=== PATIENT | male | born 1965 | race Two or more races ===

== ENCOUNTER 2020-01-02 20:14 | Inpatient (IN) | payer MEDICAID, OTHER ==
[~2020-01-02] VITALS: Ht 165.1 cm; Wt 94.6 kg
[2020-01-02 00:30] VITALS: BP 260/68
--- NOTE | 2020-01-02 20:14 | NUR ---
BIBEMS FROM [facility] C/O FEVER, CHILLS, ALTERED. NOTED PT WITH BLOOD AT THE CORNER OF HIS MOUTH DURING TEMP CHECK. PT TO BED R7, AWAKE/ALERT, -SOB, NOT IN ACUTE DISTRESS, SZR PRECAUTION STARTED. VSS. +TACHY/+FEVER, PENDING ER PROVIDER MEEK
[2020-01-02] MEDS ORDERED: VANCOMYCIN 1 GM in IV D5W 250 ML IV ONE (20:30)
[2020-01-02] MEDS ORDERED: ACETAMINOPHEN 650 MG/SUPP.RECT RC ONE ×2 (20:30→20:43)
[2020-01-02] MEDS ORDERED: PIPERACILLIN /TAZOBACTAM 3.375 G in IV D5W 50 ML IV ONE (20:30)
[2020-01-02 20:42] LABS: BASOPHILS % (AUTO) 0.8 % (0.0-2.0); EOSINOPHILS % (AUTO) 1.3 % (0.0-6.0); HEMATOCRIT 36 % (39-51); HEMOGLOBIN 11.9 g/dL (13.5-17.5); LYMPHOCYTES # (AUTO) 0.8 /CMM (0.8-4.8); LYMPHOCYTES % (AUTO) 15.6 % (20.0-44.0); MEAN CORPUSCULAR HGB CONC 33 g/dl (31.0-36.0); MEAN CORPUSCULAR VOLUME 91 fL (80-96); MONOCYTES # (AUTO) 0.3 /CMM (0.1-1.30); MONOCYTES % (AUTO) 5.6 % (2.0-12.0); NEUTROPHILS # (AUTO) 3.9 /CMM (1.8-8.9); NEUTROPHILS % (AUTO) 76.7 % (43.0-81.0); PLATELET COUNT (AUTO) 152 /CMM (150-450); RED BLOOD CELL COUNT(AUTO) 3.99 MIL/uL (4.5-6.0); WHITE BLOOD COUNT (AUTO) 5.1 K/uL (4.3-11.0)
[2020-01-02] MEDS ORDERED: PIPERACILLIN /TAZOBACTAM 3.375 G VIAL IV ONE (20:49)
[2020-01-02 21:02] LABS: ALBUMIN 3.2 g/dL (3.4-5.0); BILIRUBIN,DIRECT 0.2 mg/dL (0.0-0.2); BILIRUBIN,TOTAL 0.5 mg/dL (0.2-1.0); CALCIUM, SERUM 8.8 mg/dL (8.5-10.1); POTASSIUM 4.6 mmol/L (3.5-5.1); TOTAL PROTEIN, SERUM 8.2 g/dL (6.4-8.2)
[2020-01-02 21:04] LABS: CREATININE 7.9 mg/dL (0.6-1.3)
[2020-01-02] MEDS ORDERED: VANCOMYCIN 1 GM VIAL ONE (21:49)
--- NOTE | 2020-01-02 21:51 | NUR ---
CALLED [facility]. DIRECTOR CENTER WAS PAGED.
--- NOTE | 2020-01-02 22:37 | NUR ---
[id number] LAURENT (DTR) [phone] OUMOU ()
--- NOTE | 2020-01-02 22:58 | NUR ---
TELE 203
[2020-01-02] MEDS ORDERED: ACETAMINOPHEN 650 MG/SUPP.RECT RC PRN (23:00)
--- NOTE | 2020-01-02 23:06 | NUR ---
REPORT GIVEN TO GRIS HOBSON FOR JAZMYNE PT WILL BE TRANSPORTED TO 2ND FLOOR
[2020-01-02] MEDS ORDERED: ALBUTEROL FS 2.5 MG/3 ML VIAL.NEB NEB PRN (23:30)
[2020-01-03] VITALS (8 sets, daily range): BP systolic 100–260; BP diastolic 31–69
[2020-01-03] MEDS ORDERED: PIPERACILLIN /TAZOBACTAM 3.375 G in IV D5W 50 ML IV SCH ×2
--- NOTE | 2020-01-03 | NUR ---
PATIENT BLOOD PRESSURE 280/68 HR 115 PATIENT RESTLEE AND NOTED JERKING MOVEMENTS ON THE MONITOR SHOWED ARTIFACT SKIN WARM AND DRY PUPIL UNEQUAL LEFT SLOW TO RESPONSE TO LIGHT RAPID RESPONSE CALLED AND WITHEN 3 MINUTES MD OCASIO AND THE RAPID RESPONSE NURSE AT THE BEDSIDE ORERED TO GOVE IV PUSH METROPOLOL 5 MG SLOWLY NOW AND MONITOR
[2020-01-03] MEDS ORDERED: CARV6.25 PO (00:03)
[2020-01-03] MEDS ORDERED: NIFE-35 PO (00:03)
[2020-01-03] MEDS ORDERED: GABA600T12 PO (00:03)
[2020-01-03] MEDS ORDERED: LISI-603 PO (00:03)
[2020-01-03] MEDS ORDERED: ATOR40TA PO (00:03)
[2020-01-03] MEDS ORDERED: SEVE800T8 PO (00:03)
--- NOTE | 2020-01-03 00:04 | NUR ---
BED NOT READY
--- NOTE | 2020-01-03 00:49 | NUR ---
PT TRANSPORTED TO 2ND FLOOR
--- NOTE | 2020-01-03 01:19 | NUR ---
JONATHAN LANDRY RN Elevated temp 101.8 patient with chills. ROXY Mandel at bedside ordered to given PRN Tylenol LA now.
[2020-01-03] MEDS ORDERED: METOPROLOL TARTRATE INJ 5 MG/5 ML AMPUL ONE (01:27)
[2020-01-03] MEDS ORDERED: METOPROLOL TARTRATE INJ 5 MG/5 ML AMPUL IVP STA (01:32)
[2020-01-03] MEDS ORDERED: ZOSYN IVPB 3.375 G in IV D5W 50ml IV ONE (03:00)
--- NOTE | 2020-01-03 05:08 | NUR ---
PATIENT ALERT AND TALKING HAD TO REORIENTATE HIM TO PLACE AND TIME AN EXPLAINED WHAT HAPPEN. HE FOLLOWS COMMANDS SMILES MOVING ALL EXTREMITIES. STATES HE HAS NO PAIN NO HEADACHE TEMP 99.8 ORALLY BLOOD PRESSURE THIS AM 126/31 IMPROVEMENT SEEN BED ALARM ON FOR HIS SAFETY AND SR UP NEAR THE NURSING STATION.
[2020-01-03] MEDS ORDERED: VANCOMYCIN 500 MG in IV D5W 100 ML IV PRN (07:00)
[2020-01-03 07:09] LABS: BASOPHILS % (AUTO) 0.5 % (0.0-2.0); HEMATOCRIT 35 % (39-51); HEMOGLOBIN 11.6 g/dL (13.5-17.5); LYMPHOCYTES # (AUTO) 0.6 /CMM (0.8-4.8); LYMPHOCYTES % (AUTO) 9.7 % (20.0-44.0); MEAN CORPUSCULAR HGB CONC 33 g/dl (31.0-36.0); MEAN CORPUSCULAR VOLUME 91 fL (80-96); MONOCYTES # (AUTO) 0.5 /CMM (0.1-1.30); MONOCYTES % (AUTO) 8.5 % (2.0-12.0); NEUTROPHILS # (AUTO) 4.6 /CMM (1.8-8.9); NEUTROPHILS % (AUTO) 81.3 % (43.0-81.0); PLATELET COUNT (AUTO) 136 /CMM (150-450); RED BLOOD CELL COUNT(AUTO) 3.82 MIL/uL (4.5-6.0); WHITE BLOOD COUNT (AUTO) 5.7 K/uL (4.3-11.0)
[2020-01-03 07:44] LABS: BILIRUBIN,TOTAL 0.5 mg/dL (0.2-1.0); CALCIUM, SERUM 8.6 mg/dL (8.5-10.1); POTASSIUM 5.3 mmol/L (3.5-5.1); TOTAL PROTEIN, SERUM 7.7 g/dL (6.4-8.2)
[2020-01-03 07:46] LABS: CREATININE 10.4 mg/dL (0.6-1.3)
--- NOTE | 2020-01-03 07:57 | NUR ---
RN OPENING NOTE Patient is resting in bed, A/O x3, showing no signs of acute distress or SOB, stable on 2L NC. Tele monitor ST 117. IV line in the RAC#18g is clean and intact flushing well. KRISTY HD cath noted. Bed is in lowest position, side rails x2 in upright position, call light is within reach, fall safety and aspiration precautions enforced. Isolation precautions d/t positive covid. Will continue with plan of care.
[2020-01-03] MEDS: SEVELAMER CARBONATE 800 MG TABLET PO SCH ×3 (08:08→17:09)
[2020-01-03] MEDS: ACETAMINOPHEN 325 MG TABLET PO PRN (08:08)
[2020-01-03] MEDS: PIPERACILLIN /TAZOBACTAM 2.25 G in IV D5W 50 ML IV SCH ×3 (08:08→17:10)
[2020-01-03] MEDS: DEXAMETHASONE SOD PHOSPHATE 10 MG/ML VIAL IV SCH (08:08)
[2020-01-03] MEDS: LISINOPRIL (20MG) 20 MG TABLET PO SCH (08:46)
[2020-01-03] MEDS ORDERED: CARVEDILOL 6.25 MG TABLET PO SCH (09:00)
[2020-01-03] MEDS ORDERED: NIFEdipine XL (30MG) 30 MG TAB PO SCH (09:00)
--- NOTE | 2020-01-03 09:00 | NUR ---
RN NOTE Temp of 99.6F, patient is diaphoretic complaining that he feels very hot. Tylenol given and cooling measures implemented. Temp went down to 98.8F, and patient has no complaints at this time. Will continue with plan of care.
--- NOTE | 2020-01-03 10:11 | NUR ---
WOUND CARE CONSULT: REVIEWED CHART, NURSING DOCUMENTATION AND PHOTOS WHICH INDICATE RT HEEL ESCHAR AND BILATERAL ANKLE REDNESS, PRESENT ON ADMISSION. RECOMMEND DPM CONSULT. DR ALEGRIA CONSULTED. RECOMMENDATIONS MADE FOR SKIN PROTECTION. DISCUSSED WITH NURSING STAFF. MD IN AGREEMENT WITH PLAN OF CARE.
[2020-01-03] MEDS ORDERED: Z GUARD REMEDY 2 OZ OINT TP PRN (10:30)
--- NOTE | 2020-01-03 10:41 | NUR ---
Per Jeri Basilio from ,states she called [facility] and spoke to Pau Barbour RN that Flu vaccine was given on Nov Addendum: 01/09/20 at 0935 by YENNY JEAN-BAPTISTE Above notes is for another patient,please disregard.
[2020-01-03] MEDS: HEPARIN SODIUM, PORCINE 5000 UNITS/1 ML VIAL SQ SCH ×2 (12:05→17:16)
--- NOTE | 2020-01-03 12:44 | NUR ---
RN NOTE Spoke with daughter Anali [phone]. Per daughter, patient lives at home and received flu vaccine last month at dialysis center.
[2020-01-03] MEDS: IPRATROPIUM/ALBUTEROL INHALER IH SCH ×2 (15:24→17:20)
--- NOTE | 2020-01-03 19:15 | NUR ---
RN CLOSING NOTE Patient is resting in bed, A/O x4, showing no signs of acute distress or SOB, stable on 2L NC. Tele monitor SR 70s-80s. IV line in the RAC#18g is clean and intact flushing well. KRISTY HD cath noted. Convalesnet plasma is still not ready per lab. Consent signed by patient, placed in chart. Dr. George completed conv. plasma paperwork. All patient needs met, all due medications given, patient is independent with self care. able to ambulate to bathroom. Bed is in lowest position, side rails x2 in upright position, call light is within reach, fall safety and aspiration precautions enforced. Isolation precautions d/t positive covid. Will endorse to manifold operator for JAZMYNE.
--- NOTE | 2020-01-03 19:38 | NUR ---
RN OPENING NOTES PATIENT RECEIVED RESTING IN BED, A/O X 4. ON 2L OF O2 WITH BREATHING EVEN AND UNLABORED, NO SOB NOTED. NO SIGNS OF ACUTE DISTRESS. NO COMPLAINTS OF PAIN OR DISCOMFORT. TELE MONITOR READING SR. IV LOCATED ON R AC #18 INTACT AND PATENT. KRISTY HD SHUNT NOTED AND IN PLACE. SAFETY PRECAUTIONS IN PLACE WITH BED IN LOWEST POSITION, CALL LIGHT WITHIN REACH, BREAKS ON, SIDE RAILS UP. WILL CONTINUE TO MONITOR THROUGHOUT THE NIGHT.
--- NOTE | 2020-01-03 21:06 | NUR ---
FOLLOWED UP WITH LAB IF CONVALESCENT PLASMA IS READY TO BE PICKED UP. NOT READY YET, WILL BE NOTIFIED WHEN ARRIVED.
[2020-01-03] MEDS: ATORVASTATIN 40 MG TABLET PO SCH (21:12)
[2020-01-03] MEDS: CARVEDILOL 6.25 MG TABLET PO SCH (21:15)
[2020-01-04] VITALS: BP 122/45
--- NOTE | 2020-01-04 | NUR ---
JAZLYN SABILLON PT. HAS TEMPERATURE OF 100.1 TYLENOL 650MG PO GIVEN ORDERED Addendum: 01/05/20 at 0143 by LUCERO VILLAREAL RN WRONG DATE
[2020-01-04] MEDS: PIPERACILLIN /TAZOBACTAM 2.25 G in IV D5W 50 ML IV SCH ×2 (00:24→05:58)
[2020-01-04] MEDS: IPRATROPIUM/ALBUTEROL INHALER IH SCH ×4 (00:33→18:01)
[2020-01-04] MEDS: HEPARIN SODIUM, PORCINE 5000 UNITS/1 ML VIAL SQ SCH ×3 (01:30→17:44)
--- NOTE | 2020-01-04 02:45 | NUR ---
CALLED LAB AND FOLLOWED UP WITH CONVALESCENT PLASMA, NOT READY.
[2020-01-04 04:00] VITALS: BP 101/51
[2020-01-04 06:27] LABS: BASOPHILS % (AUTO) 0.3 % (0.0-2.0); HEMATOCRIT 33 % (39-51); HEMOGLOBIN 10.9 g/dL (13.5-17.5); LYMPHOCYTES # (AUTO) 0.7 /CMM (0.8-4.8); LYMPHOCYTES % (AUTO) 10.2 % (20.0-44.0); MEAN CORPUSCULAR HGB CONC 33 g/dl (31.0-36.0); MEAN CORPUSCULAR VOLUME 92 fL (80-96); MONOCYTES # (AUTO) 0.2 /CMM (0.1-1.30); MONOCYTES % (AUTO) 3.8 % (2.0-12.0); NEUTROPHILS # (AUTO) 5.6 /CMM (1.8-8.9); NEUTROPHILS % (AUTO) 85.7 % (43.0-81.0); PLATELET COUNT (AUTO) 130 /CMM (150-450); RED BLOOD CELL COUNT(AUTO) 3.62 MIL/uL (4.5-6.0); WHITE BLOOD COUNT (AUTO) 6.5 K/uL (4.3-11.0)
--- NOTE | 2020-01-04 06:42 | NUR ---
RN OPENING NOTES PATIENT RESTING IN BED, A/O X 4. ON 2L OF O2 WITH BREATHING EVEN AND UNLABORED, NO SOB NOTED. NO SIGNS OF ACUTE DISTRESS. NO COMPLAINTS OF PAIN OR DISCOMFORT. TELE MONITOR READING SR. IV LOCATED ON R AC #18 INTACT AND PATENT. KRISTY HD SHUNT NOTED AND IN PLACE. SAFETY PRECAUTIONS IN PLACE WITH BED IN LOWEST POSITION, CALL LIGHT WITHIN REACH, BREAKS ON, SIDE RAILS UP. UNABLE TO INFUSE CONVALESCENT THIS SHIFT IT WAS UNAVAILABLE. ALL NEEDS ATTENDED TO. WILL ENDORSE TO ONCOMING SHIFT ABOUT JAZMYNE. Addendum: 01/04/20 at 0644 by CLAUDE FORTE RN RN CLOSING NOTES
[2020-01-04 06:51] LABS: CALCIUM, SERUM 8.4 mg/dL (8.5-10.1); MAGNESIUM 2.4 mg/dL (1.8-2.4); PHOSPHORUS 7.2 mg/dL (2.5-4.9); POTASSIUM 5.9 mmol/L (3.5-5.1)
--- NOTE | 2020-01-04 07:21 | NUR ---
TELE/RN OPENING NOTES RECEIVED PATIENT ON BED. ALERT AND ORIENTED X4. NO COMPLAINED OF PAIN NOTED AT THIS TIME. PATIENT IN NO APPARENT RESPIRATORY DISTRESS NOTED. ON TELE MONITOR READING SINUS RHYTHM 70 BPM. WILL CONTINUE TO MONITOR.
[2020-01-04] MEDS: SEVELAMER CARBONATE 800 MG TABLET PO SCH ×3 (08:23→17:41)
[2020-01-04] MEDS: DEXAMETHASONE SOD PHOSPHATE 10 MG/ML VIAL IV SCH (08:24)
[2020-01-04] MEDS: CARVEDILOL 6.25 MG TABLET PO SCH ×2 (08:24→22:07)
[2020-01-04] MEDS: LISINOPRIL (20MG) 20 MG TABLET PO SCH (08:26)
[2020-01-04] MEDS: NIFEdipine XL (30MG) 30 MG TAB PO SCH (08:27)
[2020-01-04] MEDS: ACETAMINOPHEN 325 MG TABLET PO PRN ×2 (12:43→18:33)
--- NOTE | 2020-01-04 12:44 | NUR ---
TELE/RN NOTES TEMP 100.6 TYLENOL 650MG 1 TAB WAS GIVEN WILL CONTINUE TO MONITOR.
[2020-01-04] MEDS ORDERED: PIPERACILLIN /TAZOBACTAM 2.25 G in IV D5W 50 ML IV SCH (13:00)
--- NOTE | 2020-01-04 19:41 | NUR ---
TELE/RN CLOSING NOTES PATIENT ALERT AND ORIENTED X4. NO COMPLAINED OF PAIN NOTED AT THIS TIME. PATIENT IN NO APPARENT RESPIRATORY DISTRESS NOTED. SEEN AND EXAMINED BY MD WITH ORDER MADE AND CARRIED OUT. ALL DUE MEDICATION WAS IN PLACED. TELE MONITOR READING SR 91 BPM. SAFETY PRECAUTIONS WAS IN PLACED . BED IN LOWEST POSITION AND LOCKED. CALL LIGHT WITH IN REACH. WILL ENDORSED TO COMPANY MARKER FOR JAZMYNE.
[2020-01-04 20:00] VITALS: BP 127/88
--- NOTE | 2020-01-04 20:00 | NUR ---
RN NOTES RECEIVED PT. AWAKE ON BED, A/O X43, AMBULATE WITH ASSIST, IV LINE IS INFILTRATED, NEW IV LINE INSERTED ON THE RIGHT HAND GAUGE 22, DENIES PAIN, NO SOB, CALL LIGHT WITHIN REACH, SIDERAILSUPX2, WILL CONTINUE TO MONITOR
[2020-01-04] MEDS: LEVOFLOXACIN 250 MG /D5W 50 ML 250 MG in PREMIX 1 EA IV SCH (21:15)
[2020-01-04] MEDS: ATORVASTATIN 40 MG TABLET PO SCH (21:16)
[2020-01-04] MEDS: ONDANSETRON HCL/PF 4 MG/2 ML VIAL IVP PRN (21:57)
--- NOTE | 2020-01-04 22:00 | NUR ---
RN NOTES PT IS VOMITING - ZOFRAN 4 MG IV GIVEN ORDERED
[2020-01-05] VITALS (9 sets, daily range): BP systolic 96–135; BP diastolic 46–77
--- NOTE | 2020-01-05 | NUR ---
RN NOTES PT. HAS TEMPERATURE OF 100.1 TYLENOL 650MG PO GIVEN ORDERED
[2020-01-05] MEDS: IPRATROPIUM/ALBUTEROL INHALER IH SCH ×5 (00:08→23:16)
[2020-01-05] MEDS: ACETAMINOPHEN 325 MG TABLET PO PRN ×2 (00:16→10:51)
--- NOTE | 2020-01-05 01:25 | NUR ---
RN NOTES PT. WAS TELLING ME HE'S HAVING DIARRHEA AND WANTS SOME MEDICATION, EXPLAINED TO THE PATIENTS THAT I NEED A SPECIMEN BEFORE GIVING MEDICATION FOR DIARRHEA, BUT PT. REFUSED "PT'S WANTS TO GET HIS MEDICATION NOW".. EXPLAINED THE BENEFITS AND IMPORTANCE OF SENDING SPECIMEN TO THE LAB BUT PT. REFUSED
--- NOTE | 2020-01-05 01:39 | NUR ---
RN NOTES PT. IS COMPLAINING OF HAVING DIARRHEA, SPOKE TO DR. HERNANDEZ AND GOT AN ORDER OF LOPERAMIDE 2MG PO PTN, ORDER NOTED AND CARRIED OUT
[2020-01-05] MEDS ORDERED: LOPERAMIDE HCL (2 MG CAP) 2 MG CAPSULE ONE (02:01)
[2020-01-05] MEDS: LOPERAMIDE HCL (2 MG CAP) 2 MG CAPSULE PO PRN ×2 (02:04→14:50)
[2020-01-05] MEDS: HEPARIN SODIUM, PORCINE 5000 UNITS/1 ML VIAL SQ SCH ×3 (02:07→18:26)
--- NOTE | 2020-01-05 06:34 | NUR ---
RN NOTES AWWAKE, NOT IN DITRESS, DENIES PAIN, NO SOB, CALL LIGHT WITHIN REACH, SIDERAILSUPX2, PT. NEEDS ATTENDED
[2020-01-05 06:39] LABS: CALCIUM, SERUM 8.4 mg/dL (8.5-10.1)
[2020-01-05 07:03] LABS: CREATININE 12.4 mg/dL (0.6-1.3); POTASSIUM 6.8 mmol/L (3.5-5.1)
--- NOTE | 2020-01-05 07:20 | NUR ---
ms rn received patient,awake,alert,oriented x3,no in any form of distress, respirations even and unlabored,no sob noted, lungs are diminish,abdomen soft, positive bowel sounds,denies pain at this time,all needs attended.
[2020-01-05] MEDS: SEVELAMER CARBONATE 800 MG TABLET PO SCH ×3 (08:00→18:00)
--- NOTE | 2020-01-05 08:30 | NUR ---
rn on bed, breakfast served,due meds given,tolerated well.will monitor patient's condition.
[2020-01-05] MEDS: CARVEDILOL 6.25 MG TABLET PO SCH ×2 (09:00→21:33)
[2020-01-05] MEDS: NIFEdipine XL (30MG) 30 MG TAB PO SCH (09:00)
[2020-01-05] MEDS: LISINOPRIL (20MG) 20 MG TABLET PO SCH (09:00)
--- NOTE | 2020-01-05 09:30 | NUR ---
ms rn notified md about labs today, will do hd per renal fnp.
[2020-01-05] MEDS: DEXAMETHASONE SOD PHOSPHATE 10 MG/ML VIAL IV SCH (09:36)
--- NOTE | 2020-01-05 09:40 | NUR ---
ms rn patient refused med for this am, patient refused breakfast.
[2020-01-05] MEDS: ONDANSETRON HCL/PF 4 MG/2 ML VIAL IVP PRN (09:46)
--- NOTE | 2020-01-05 11:30 | NUR ---
ms rn started convalescent plasma transfusion,no adverse reaction noted.
--- NOTE | 2020-01-05 12:00 | NUR ---
ms rn plasma transfusion done,all needs attended.
--- NOTE | 2020-01-05 16:00 | NUR ---
ms dick hd started, will monitor patient.
[2020-01-05 16:17] LABS: CALCIUM, SERUM 8.5 mg/dL (8.5-10.1)
[2020-01-05 16:20] LABS: CREATININE 13.1 mg/dL (0.6-1.3); POTASSIUM 6.6 mmol/L (3.5-5.1)
--- NOTE | 2020-01-05 18:00 | NUR ---
ms rn refused sevelamer because he is not eating.
--- NOTE | 2020-01-05 18:17 | NUR ---
ms kapil hd finished, 2 liters out.
--- NOTE | 2020-01-05 19:10 | NUR ---
MATTRESS AND BOXSPRINGS SUPERVISOR OPENING NOTES: RECEIVED PATIENT IN BED AWAKE, A/O X4. NO S/S OF DISTRESS NOTED. NO COMPLAIN OF PAIN. CALL LIGHT WITHIN REACH. BED ALARM ON. BED IN LOWEST AND LOCKED POSITION. PLACED SCD'S ON BOTH LEGS.
[2020-01-05] MEDS: LEVOFLOXACIN 250 MG /D5W 50 ML 250 MG in PREMIX 1 EA IV SCH (20:35)
[2020-01-05] MEDS: ATORVASTATIN 40 MG TABLET PO SCH (21:33)
--- NOTE | 2020-01-05 23:34 | NUR ---
INFORMED DR HERNANDEZ RE: FOR SLEEPING PILL.
[2020-01-06] VITALS (8 sets, daily range): BP systolic 105–130; BP diastolic 64–77
[2020-01-06] MEDS: ZOLPIDEM TARTRATE 5 MG TABLET PO PRN ×2 (00:36→23:43)
[2020-01-06] MEDS: HEPARIN SODIUM, PORCINE 5000 UNITS/1 ML VIAL SQ SCH ×3 (02:00→17:23)
[2020-01-06] MEDS: IPRATROPIUM/ALBUTEROL INHALER IH SCH ×3 (05:53→17:23)
--- NOTE | 2020-01-06 06:22 | NUR ---
ARMATURE REPAIRER CLOSING NOTES: PATIENT IN BED, AWAKE, A/O X4. NO S/S OF DISTRESS NOTED. NO COMPLAIN OF PAIN. PATIENT STATED HE SLEPT GOOD. CALL LIGHT WITHIN REACH. BED ALARM ON. BED IN LOWEST AND LOCKED POSITION. RIGHT HEEL WOUND PAINTED WITH BETADINE AND COVERED WITH FOAM DRESSING.
[2020-01-06 07:03] LABS: CALCIUM, SERUM 8.5 mg/dL (8.5-10.1); POTASSIUM 5.9 mmol/L (3.5-5.1)
--- NOTE | 2020-01-06 07:37 | NUR ---
METAL FABRICATOR WELDER NOTE PATIENT IN BED RESTING COMFORTABLY. PATIENT IN NO ACUTE DISTRESS. NO SOB NOTED. PATIENT BREATHING IS EVEN AND UNLABORED. PATIENT ON CARDIAC MONITORING READING SINUS RHYTHM HR 78. PATIENT HOB IS ELEVATED. PATIENT SAFETY PRECAUTIONS IN PLACE. PATIENT BED ALARM IS ON. PATIENT BED IS LOCKED AND IN LOWEST POSITION. CALL LIGHT WITHIN REACH. WILL CONTINUE TO MONITOR.
[2020-01-06] MEDS: SEVELAMER CARBONATE 800 MG TABLET PO SCH ×3 (08:13→17:23)
[2020-01-06] MEDS: CARVEDILOL 6.25 MG TABLET PO SCH ×2 (08:14→21:11)
[2020-01-06] MEDS: LISINOPRIL (20MG) 20 MG TABLET PO SCH (08:14)
[2020-01-06] MEDS: NIFEdipine XL (30MG) 30 MG TAB PO SCH (08:15)
[2020-01-06] MEDS: DEXAMETHASONE SOD PHOSPHATE 10 MG/ML VIAL IV SCH (08:16)
--- NOTE | 2020-01-06 12:04 | NUR ---
DIVIDEND CLERK NOTE PATIENT COMPLETED DIALYSIS WITH JERRY HOBSON. PER JERRY 2L TAKEN OUT. PER OSMAR [place] WITH MD ORDER FOR BMP IN 2 HOURS AFTER DIALYSIS.
--- NOTE | 2020-01-06 12:18 | NUR ---
CHECKOUT OPERATOR NOTE PATIENT REQUESTING TYLENOL FOR HEADACHE 4/10 PAIN. TYLENOL PRN TO BE GIVEN ORDERED.
[2020-01-06] MEDS: ACETAMINOPHEN 325 MG TABLET PO PRN ×2 (12:20→21:12)
[2020-01-06] MEDS ORDERED: VANCOMYCIN 1 GM in IV D5W 250 ML IV ONE (14:00)
[2020-01-06 15:35] LABS: CALCIUM, SERUM 8.8 mg/dL (8.5-10.1); POTASSIUM 5.3 mmol/L (3.5-5.1)
[2020-01-06 15:43] LABS: CREATININE 8.4 mg/dL (0.6-1.3)
--- NOTE | 2020-01-06 16:02 | NUR ---
MUSEUM ATTENDANT NOTE INFORMED PRATIK LEON OF BLOOD GLUCOSE RESULT AT 406. PER PRATIK THAT IS DUE TO PATIENT TAKING DEXAMETHASONE. PER PRATIK LEON MD ORDER FOR ACCU CHECK MILD REGULAR INSULIN SLIDING SCALE ACHS.
[2020-01-06] MEDS ORDERED: INSULIN REGULAR, HUMAN 100 UNIT/ML 3 ML VIAL SQ PRN ×2 (16:30→18:30)
[2020-01-06] MEDS ORDERED: DEXTROSE 50%-WATER 50 ML DISP.SYRIN IV PRN ×2 (16:30→18:30)
--- NOTE | 2020-01-06 16:52 | NUR ---
MEDICAL BILLING COORDINATOR NOTE INFORMED PRATIK LEON OF BLOOD SUGAR 492. GAVE 10 UNITS PRN REGULAR INSULIN ACCORDING TO SLIDING SCALE. PER PRATIK GIVE ADDITIONAL 4 UNITS REGULAR INSULIN. Addendum: 01/06/20 at 1653 by NEEL FAIRCHILD RN MEDICAL BILLING COORDINATOR NOTE INFORMED PRATIK LEON OF BLOOD SUGAR 492. GAVE 10 UNITS PRN REGULAR INSULIN ACCORDING TO SLIDING SCALE. PER MD PRATIK ORDER TO GIVE ADDITIONAL 4 UNITS REGULAR INSULIN.
[2020-01-06] MEDS ORDERED: INSULIN REGULAR, HUMAN 100 UNIT/ML 3 ML VIAL SQ ONE (17:00)
[2020-01-06] MEDS ORDERED: BLOOD SUGAR DIAGNOSTIC 1 EACH STRIP IN SCH (17:30)
--- NOTE | 2020-01-06 18:19 | NUR ---
BASIN CLEANER NOTE INFORMED PRATIK LEON OF CURRENT BLOOD SUGAR 461 AND ELEVATED BLOOD GLUCOSE ORDERED RESULTS. PER PRATIK LEON MD ORDER TO CHANGE MILD SLIDING SCALE TO MODERATE SLIDING SCALE AND CONTINUE TO MONITOR.
--- NOTE | 2020-01-06 19:05 | NUR ---
CONTROL INSPECTOR NOTE PATIENT IN BED RESTING COMFORTABLY. PATIENT IN NO ACUTE DISTRESS. NO SOB NOTED. PATIENT BREATHING IS EVEN AND UNLABORED. PATIENT ON CARDIAC MONITORING READING SINUS RHYTHM HR 85. PATIENT HOB IS ELEVATED. PATIENT KEPT CLEAN AND DRY THROUGHOUT SHIFT. WILL ENDORSE TO FOLLOW UP WITH BLOOD SUGAR. PATIENT SAFETY PRECAUTIONS IN PLACE. PATIENT BED ALARM IS ON. PATIENT BED IS LOCKED AND IN LOWEST POSITION. CALL LIGHT WITHIN REACH. WILL ENDORSE CARE TO PM SHIFT FOR JAZMYNE.
--- NOTE | 2020-01-06 19:58 | NUR ---
WARP YARN SORTER NOTES RECEIVED PATIENT IN BED RESTING COMFORTABLY. PATIENT IN NO ACUTE DISTRESS. NO SOB NOTED. PATIENT BREATHING IS EVEN AND UNLABORED. PATIENT ON CARDIAC MONITORING READING SINUS RHYTHM HR 80s. PATIENT HOB IS ELEVATED. SAFETY MEASURES IN PLACE, ASPIRATION PRECAUTION EMPHASIZED. CALL LIGHT WITH IN EASY REACH. ALL NEEDS ANTICIPATED. WILL CONTINUE TO MONITOR ACCORDINGLY.
[2020-01-06] MEDS: ATORVASTATIN 40 MG TABLET PO SCH (21:11)
[2020-01-06] MEDS: BLOOD SUGAR DIAGNOSTIC 1 EACH STRIP VI SCH (21:28)
[2020-01-06] MEDS: *INSULIN REGULAR(HUMULIN R)HUM 100 UNIT/ML VIAL SQ PRN (21:59)
[2020-01-07] MEDS: IPRATROPIUM/ALBUTEROL INHALER IH SCH ×4 (01:19→17:22)
[2020-01-07] MEDS: HEPARIN SODIUM, PORCINE 5000 UNITS/1 ML VIAL SQ SCH ×3 (02:11→17:31)
[2020-01-07] MEDS ORDERED: VANCOMYCIN 500 MG in IV D5W 100 ML IV PRN (06:00)
[2020-01-07] MEDS: BLOOD SUGAR DIAGNOSTIC 1 EACH STRIP VI SCH ×4 (06:46→21:30)
[2020-01-07] MEDS: INSULIN REGULAR, HUMAN 100 UNIT/ML 3 ML VIAL SQ PRN ×3 (06:48→17:31)
--- NOTE | 2020-01-07 07:22 | NUR ---
MUFFLE OPERATOR NOTES ALL NEEDS ATTENDED AND MET. PATIENT IN BED RESTING COMFORTABLY. PATIENT IN NO ACUTE DISTRESS. NO SOB NOTED. PATIENT BREATHING IS EVEN AND UNLABORED. PATIENT ON CARDIAC MONITORING READING SINUS RHYTHM HR 80s. PATIENT HOB IS ELEVATED. SAFETY MEASURES IN PLACE, ASPIRATION PRECAUTION EMPHASIZED. CALL LIGHT WITH IN EASY REACH. ALL NEEDS ANTICIPATED. ENDORSED TO AM NURSE FOR CONTINUITY OF CARE.
--- NOTE | 2020-01-07 07:49 | NUR ---
VP CARDIOVASCULAR OPENING NOTES RECEIVED PATIENT IN BED, AWAKE, A/O X4. PATIENT OM OXYGEN THERAPY AT 4 LPM VIA NASAL CANULA; BREATHING IS EVEN AND UNLABORED; NO SOB NOTED AT THIS TIME. CURRENT MONITOR READING SR 71. IV ACCESS PRESENT ON THE R HAND G#22 AND RAC G # 22. NO COMPLAINS OF PAIN AT THIS TIME. SAFETY PRECAUTIONS IN PLACE; BED IN LOW POSITION AND LOCKED, RAILS UP X2, CALL LIGHT WITHIN REACH. WILL CONTINUE TO MONITOR PATIENT.
[2020-01-07] MEDS: CARVEDILOL 6.25 MG TABLET PO SCH ×2 (08:34→21:43)
[2020-01-07] MEDS: NIFEdipine XL (30MG) 30 MG TAB PO SCH (08:35)
[2020-01-07] MEDS: DEXAMETHASONE SOD PHOSPHATE 10 MG/ML VIAL IV SCH (08:36)
[2020-01-07] MEDS: SEVELAMER CARBONATE 800 MG TABLET PO SCH ×3 (08:36→17:08)
[2020-01-07] MEDS: LISINOPRIL (20MG) 20 MG TABLET PO SCH (08:36)
--- NOTE | 2020-01-07 09:30 | NUR ---
WALLPAPER CLEANER NOTES PATIENT WITH CR OF 11. MD NOTIFIED.
[2020-01-07] MEDS ORDERED: MAG HYDROX/AL HYDROX/SIMETH 30 ML UDC PO PRN (16:00)
--- NOTE | 2020-01-07 18:35 | NUR ---
ELECTRIC TOOL REPAIRER CLOSING NOTES PATIENT REMAINS IN BED, AWAKE, A/O X4 AND WATCHING TV. PATIENT ON OXYGEN THERAPY AT 4 LPM VIA NASAL CANULA; BREATHING IS EVEN AND UNLABORED; NO SOB NOTED DURING THE SHIFT. CURRENT MONITOR READING SR 75. IV ACCESS PRESENT ON THE R HAND G#22 AND RAC G # 22. ALL NEEDS ATTENDED DURING THE DAY. NO COMPLAINS OF PAIN DURING SHIFT. SAFETY PRECAUTIONS IN PLACE; BED IN LOW POSITION AND LOCKED, RAILS UP X2, CALL LIGHT WITHIN REACH. WILL ENDORSE TO WEB MASTER NURSE.
[2020-01-07] MEDS: *INSULIN REGULAR(HUMULIN R)HUM 100 UNIT/ML VIAL SQ PRN (21:31)
[2020-01-07 21:32] VITALS: BP 123/75
[2020-01-07] MEDS: ATORVASTATIN 40 MG TABLET PO SCH (21:32)
[2020-01-07] MEDS: ACETAMINOPHEN 325 MG TABLET PO PRN (21:43)
--- NOTE | 2020-01-07 21:46 | NUR ---
prn tylenol: t 99.4, prn tylenol 650 mg tab po administered to pt at this time.
--- NOTE | 2020-01-07 23:00 | NUR ---
BAKERY MANAGER: RECEIVED REPORT FROM CLIFF HOBSON AT 1920. PT A/O X3 ON 5L OXYGEN VIA NC, PT HD PT KRISTY AVSHUNT DRESSING C/D/I, NO ACTIVE BLEEDING NOTED. S/P HD 2L OUTPUT 01/06/2020. IV ACCESS PATENT AND FLUSHING WELL, RIGHT SC G 22. 2100: VS TAKEN AND RECORDED. 2199: ACCU CHECK PERFORMED ORDERED, INSULIN SLIDING SCALE COVERAGE ADMINISTERED. SNACKS PROVIDED TO PT. 2229: WOUND CARE FOR RIGHT HEEL PROVIDED. OFFLOADED RLE AT ALL TIMES USING PILLOWS. ENCOURAGED PT TO PERFORMED DEEP BREATHING COUGHING EXERCISES. POSITIVE COVID19, PPE N95 FACE SHIELD UTILIZED. DISCUSSED PLAN OF CARE TO PT. SAFETY PRECAUTIONS FOR FALL INITIATED, CALL LIGHT IN REACH, WILL MONITOR PT ACCORDINGLY.
[2020-01-08 00:30] VITALS: BP 111/65
[2020-01-08] MEDS: IPRATROPIUM/ALBUTEROL INHALER IH SCH ×4 (01:16→17:52)
[2020-01-08] MEDS: HEPARIN SODIUM, PORCINE 5000 UNITS/1 ML VIAL SQ SCH ×3 (01:22→17:55)
[2020-01-08 04:00] VITALS: BP 109/62
--- NOTE | 2020-01-08 04:30 | NUR ---
RN NOTES: PT REQUESTED FOR APPLE SAUCE AND PRUNE JUICE.
[2020-01-08] MEDS: INSULIN REGULAR, HUMAN 100 UNIT/ML 3 ML VIAL SQ PRN ×4 (06:17→22:11)
[2020-01-08] MEDS: BLOOD SUGAR DIAGNOSTIC 1 EACH STRIP VI SCH ×4 (06:18→22:09)
--- NOTE | 2020-01-08 06:23 | NUR ---
ACCU CHECK: BLOOD GLUCOSE RESUL;T IS 312, 12 UNITS OF INSULIN GIVEN PER SLIDING SCALE.
[2020-01-08] MEDS: LEVOFLOXACIN (250MG) 250 MG TABLET PO SCH (06:24)
--- NOTE | 2020-01-08 07:00 | NUR ---
END OF SHIFT REPORT: PT REMAINS ON 5L OXYGEN VIA NC RESPIRATIONS EVEN AND UNLABORED. IV ACCESS PATENT AND FLUSHING WELL, ON HL, NO S/S OF IV INFILTRATION NOTED. HD ACCESS SITE DRESSING REMAINS C/D/I, NO ACTIVE BLEEDING NOTED. ALL DUE MEDS ADMINISTERED. TMAX 99.4, PRN TTYLENOL, ADMINISTERED. REMAINS SINUS RHYTHM HR 60-70S. LATEST TEMP 97.7. WOUND CARE DONE ORDERED. ACCUCHECK PERFORMED. PLAN OF CARE: CONTINUE PO ATB, HD NEEDS PER NEPHRO. SAFETY PRECAUTIONS FOR FALL REMAINS ENGAGED, CALL LIGHT IN REACH, WILL ENDORSE TO DAY RN FOR JAZMYNE
[2020-01-08 07:10] LABS: POTASSIUM 5.5 mmol/L (3.5-5.1)
[2020-01-08 07:31] LABS: CALCIUM, SERUM 8.6 mg/dL (8.5-10.1)
[2020-01-08 08:00] VITALS: BP 109/53
--- NOTE | 2020-01-08 08:00 | NUR ---
RN OPENING NOTE Patient is resting in bed, A/O x4, showing no signs of acute distress or SOB, saturating 95% on 5L NC. Tele monitor SR with prolonged QT interval. Patient denies any pain or discomfort. IV line in the RAC#22g and right hand#22g is clean and intact flushing well. Bed is in lowest position, side rails x3 in upright position, call light is within reach, fall safety and aspiration precautions enforced. Will continue with plan of care.
[2020-01-08] MEDS: NIFEdipine XL (30MG) 30 MG TAB PO SCH (09:00)
[2020-01-08] MEDS: LISINOPRIL (20MG) 20 MG TABLET PO SCH (09:00)
[2020-01-08] MEDS: CARVEDILOL 6.25 MG TABLET PO SCH ×2 (09:00→21:40)
[2020-01-08] MEDS: PANTOPRAZOLE 40 MG TABLET.DR PO SCH (09:10)
[2020-01-08] MEDS: SEVELAMER CARBONATE 800 MG TABLET PO SCH ×3 (09:10→17:52)
[2020-01-08] MEDS: DEXAMETHASONE SOD PHOSPHATE 10 MG/ML VIAL IV SCH (09:11)
--- NOTE | 2020-01-08 11:40 | NUR ---
RN NOTE HD completed with 1L out. VS stable, patient is a/ox4, will continue with plan of care.
[2020-01-08 12:00] VITALS: BP 111/30
--- NOTE | 2020-01-08 14:45 | NUR ---
RN NOTE Patient c/o of cough and asking for cough medicine. Ok per MD to order Guafenesin 300mg PO q6H PRN cough.
[2020-01-08] MEDS ORDERED: GUAIFENESIN 300 MG/15 ML UDC PO PRN (15:00)
[2020-01-08 16:00] VITALS: BP 123/53
--- NOTE | 2020-01-08 19:58 | NUR ---
RN CLOSING NOTE Patient is resting in bed, A/O x4, showing no signs of acute distress or SOB, saturating 95% on 5L NC. Tele monitor SR. IV line in the RAC#22g and right hand#22g is clean and intact flushing well. All patient needs met, all due medications given, patient kept clean and dry throughout shift. Patient is able to ambulate to bathroom by himself. Bed is in lowest position, side rails x3 in upright position, call light is within reach, fall safety and aspiration precautions enforced. Will endorse to practice billing associate for JAZMYNE.
[2020-01-08 20:00] VITALS: BP 141/58
--- NOTE | 2020-01-08 20:00 | NUR ---
LEAD ATG DEVELOPER NOTE PT IN BED SITTING UP A/O X 4, NO SOB NOTED, NO DISCOMFORT OR DISTRESS NOTED. ON O2 5L VIA NC O2 SAT 94%. ON TELE SR WITH SLIGHTLY T WAVE ELEVATED HR 86. RAC AND RT HAND #22 G INTACT AND PATENT. NO S/S OF INFILTRATION NOTED. KEPT HIM DRY AND CLEAN. SIDE RAILS UP X 2 AND CALL LIGHT WITHIN REACH. VSS. CONTINUE TO MONITOR.
[2020-01-08] MEDS: ATORVASTATIN 40 MG TABLET PO SCH (21:40)
[2020-01-09] VITALS: BP 151/59
[2020-01-09] MEDS: ZOLPIDEM TARTRATE 5 MG TABLET PO PRN ×2 (00:34→22:05)
[2020-01-09] MEDS: IPRATROPIUM/ALBUTEROL INHALER IH SCH ×4 (00:35→17:05)
[2020-01-09] MEDS: HEPARIN SODIUM, PORCINE 5000 UNITS/1 ML VIAL SQ SCH ×3 (02:00→17:09)
[2020-01-09] MEDS: BLOOD SUGAR DIAGNOSTIC 1 EACH STRIP VI SCH ×4 (06:53→21:42)
[2020-01-09] MEDS: INSULIN REGULAR, HUMAN 100 UNIT/ML 3 ML VIAL SQ PRN ×3 (06:54→16:45)
[2020-01-09 06:59] LABS: CALCIUM, SERUM 8.3 mg/dL (8.5-10.1); POTASSIUM 5.2 mmol/L (3.5-5.1)
--- NOTE | 2020-01-09 06:59 | NUR ---
POWERPLANT OPERATOR NOTE PT IN BED SITTING UP, NO DISTRESS OR DISCOMFORT NOTED. DENIES PAIN. PT REMAIN WITH PRODUCTIVE COUGH. ALL NEEDS ATTENDED. ON TELE SR. SIDE RAILS UP X 2 AND CALL LIGHT WITHIN REACH. WILL ENDORSE TO DAY SHIFT NURSE FOR CONTINUE TO CARE.
[2020-01-09 07:01] LABS: CREATININE 11.9 mg/dL (0.6-1.3)
--- NOTE | 2020-01-09 07:30 | NUR ---
GLASS BLOWING INSTRUCTOR NOTES PT IN BED, AWAKE, ALERT AND ORIENTED, NO COMPLAINT OF PAIN OR ANY DISCOMFORT, RESPIRATIONS NORMAL AND UNLABORED, ON 5L OF O2 VIA N/C, WITH O2 SAT OF 96%, NO BLEEDING NOTED AT AV FISTULA AT LEFT ARM, CALL LIGHT WITHIN REACH, NEEDS ATTENDED.
[2020-01-09 08:00] VITALS: BP 143/98
[2020-01-09] MEDS: SEVELAMER CARBONATE 800 MG TABLET PO SCH ×3 (08:31→17:04)
[2020-01-09] MEDS: LISINOPRIL (20MG) 20 MG TABLET PO SCH (08:31)
[2020-01-09] MEDS: PANTOPRAZOLE 40 MG TABLET.DR PO SCH (08:31)
[2020-01-09] MEDS: CARVEDILOL 6.25 MG TABLET PO SCH ×2 (08:31→21:44)
[2020-01-09] MEDS: DEXAMETHASONE SOD PHOSPHATE 10 MG/ML VIAL IV SCH (08:32)
[2020-01-09] MEDS: NIFEdipine XL (30MG) 30 MG TAB PO SCH (08:32)
[2020-01-09] MEDS ORDERED: SODIUM POLYSTYRENE SULFONATE 15 G/60 ML BOTTLE PO ONE (10:30)
--- NOTE | 2020-01-09 11:30 | NUR ---
PROFESSIONAL APPLICATION DESIGNER NOTES PT IN BED, AWAKE, ALERT AND ORIENTED, DENIES PAIN, NOT IN DISTRESS, SEEN AND EXAMINED BY DR. LEON, PLAN OF CARE DISCUSSED WITH PT, VERBALIZED UNDERSTANDING, BLOOD SUGAR CHECKED, INSULIN ADMINISTERED PER SLIDING SCALE ORDERED.
[2020-01-09 12:00] VITALS: BP 127/54
[2020-01-09 16:00] VITALS: BP 113/53
--- NOTE | 2020-01-09 18:08 | NUR ---
FLIGHT OPERATIONS INSPECTOR NOTES PT IN BED, RESTING, AWAKE, ALERT AND ORIENTED, DENIES PAIN, BREATHING PATTERN NORMAL, TOLERATES CURRENT DIET, PM MEDS GIVEN ORDERED, BS CHECKED, INSULIN GIVEN PER SLIDING SCALE ORDERED, ALL NEEDS ATTENDED.
--- NOTE | 2020-01-09 19:50 | NUR ---
RN OPENING NOTES RECEIVED PT IN BED. TELE MONITORING IN PLACE. ISOLATION PRECAUTIONS IN PLACE FOR COVID 19 +. PT CURRENTLY ON 5L OF OXYGEN VIA NASAL CANNULA WITH HUMIDIFICATION. PT IS NOT IN RESPIRATORY DISTRESS OR HAVING SOB AT THIS TIME. TOLERATING NC, BREATHING IS EVEN AND UNLABORED. PT IS SATURATING WELL AT 98% AT THIS TIME. IV SITE RIGHT AC #22 FLUSHED, ASEPTICALLY SALINE LOCKED. RIGHT HAD IV SITE REMOVED, CATHETER INTACT. APPLIED PRESSURE WITH 2X2 GAUZE FOR 1 MIN. NO S/S OF BLEEDING. PT HAS AV SHUNT ON LEFT ARM, SIGN POSTED FOR NO BP OR BLOOD DRAW. PT DENIES PAIN AT THIS TIME. SAFETY MEASURES IN PLACE. HOB ELEVATED. BED IS LOCKED IN LOWEST POSITION. SIDE RAILS UP X 2. CALL LIGHT WITHIN REACH. WILL CONTINUE TO MONITOR.
[2020-01-09 20:00] VITALS: BP 119/56
[2020-01-09] MEDS: ATORVASTATIN 40 MG TABLET PO SCH (21:43)
[2020-01-09] MEDS: *INSULIN REGULAR(HUMULIN R)HUM 100 UNIT/ML VIAL SQ PRN (22:04)
[2020-01-10] VITALS: BP 111/60
--- NOTE | 2020-01-10 00:10 | NUR ---
PT NOTED TO BE COUGHING OCCASIONALLY, AFTER INHALER CLAIMS EASIER TO BREATHE. STILL ON 5L OF OXYGEN. TOLERATING WELL. WILL CONTINUE TO MONITOR.
[2020-01-10] MEDS: IPRATROPIUM/ALBUTEROL INHALER IH SCH ×5 (00:21→23:21)
[2020-01-10] MEDS: HEPARIN SODIUM, PORCINE 5000 UNITS/1 ML VIAL SQ SCH ×2 (01:55→09:06)
[2020-01-10 04:00] VITALS: BP 115/69
--- NOTE | 2020-01-10 04:55 | NUR ---
PT RESTING NO SIGNS OF RESP DISTRESS OR COUGH AT THIS TIME.
--- NOTE | 2020-01-10 07:00 | NUR ---
RN CLOSING NOTES PT AWAKE, RESTING CURRENTLY. NO CHANGES IN CONDITION THROUGHOUT THE NIGHT PT CURRENTLY ON 5L OF OXYGEN VIA NASAL CANNULA WITH HUMIDIFICATION. PT IS NOT IN RESPIRATORY DISTRESS OR HAVING SOB AT THIS TIME. NO COUGH NOTED AT THIS TIME. TOLERATING NC, BREATHING IS EVEN AND UNLABORED. PT IS SATURATING WELL AT 98% AT THIS TIME. IV SITE RIGHT AC #22 FLUSHED, ASEPTICALLY SALINE LOCKED. PT HAS AV SHUNT ON LEFT ARM, SIGN POSTED FOR NO BP OR BLOOD DRAW. PT DENIES PAIN AT THIS TIME. SAFETY MEASURES IN PLACE. HOB ELEVATED. BED IS LOCKED IN LOWEST POSITION. SIDE RAILS UP X 2. CALL LIGHT WITHIN REACH. WILL ENDORSE AM NURSE FOR CONTINUATION OF CARE
--- NOTE | 2020-01-10 07:40 | NUR ---
RN NOTES RECEIVED PT IN BED, AWAKE, JAPANESE SPEAKING BUT CAN UNDERSTAND AND SPEAK PASHTO. PT ON SUPPLEMENTARY OXYGEN AT 5l VIA NC, WITH NO ACUTE RESPIRATORY DISTRESS NOTED. PT DENIES ANY PAIN OR DISCOMFORT AT THIS TIME. TELEMONITORING SR 93, PER TRIMMER BUFFING WHEEL WITH SLIGHT T ELEVATION. KRISTY FISTULA FOR HD ACCESS NOTED. PIV TO RAC G22, FLUSHED WITH NS INTACT AND OPERATIONAL. KEPT COMFORTABLE IN BED. CALL LIGHT KEPT WITHIN REACH. PT'S BED IN LOWEST, LOCKED POSITION WITH SRX3. WILL CONTINUE PLAN OF CARE.
[2020-01-10 07:56] LABS: BASOPHILS % (AUTO) 0.5 % (0.0-2.0); EOSINOPHILS % (AUTO) 3.9 % (0.0-6.0); HEMATOCRIT 31 % (39-51); HEMOGLOBIN 10.4 g/dL (13.5-17.5); LYMPHOCYTES # (AUTO) 0.8 /CMM (0.8-4.8); LYMPHOCYTES % (AUTO) 9.7 % (20.0-44.0); MEAN CORPUSCULAR HGB CONC 33 g/dl (31.0-36.0); MEAN CORPUSCULAR VOLUME 92 fL (80-96); MONOCYTES # (AUTO) 0.5 /CMM (0.1-1.30); MONOCYTES % (AUTO) 6.4 % (2.0-12.0); NEUTROPHILS # (AUTO) 6.3 /CMM (1.8-8.9); NEUTROPHILS % (AUTO) 79.5 % (43.0-81.0); PLATELET COUNT (AUTO) 282 /CMM (150-450); RED BLOOD CELL COUNT(AUTO) 3.42 MIL/uL (4.5-6.0)
[2020-01-10 08:00] VITALS: BP 117/60
[2020-01-10 08:02] LABS: ALBUMIN 2.7 g/dL (3.4-5.0); BILIRUBIN,TOTAL 0.9 mg/dL (0.2-1.0); CALCIUM, SERUM 8.2 mg/dL (8.5-10.1); MAGNESIUM 2.7 mg/dL (1.8-2.4); PHOSPHORUS 5.9 mg/dL (2.5-4.9); POTASSIUM 4.7 mmol/L (3.5-5.1); TOTAL PROTEIN, SERUM 7.5 g/dL (6.4-8.2)
[2020-01-10 08:14] LABS: CREATININE 14.4 mg/dL (0.6-1.3)
[2020-01-10] MEDS: DEXAMETHASONE SOD PHOSPHATE 10 MG/ML VIAL IV SCH (08:25)
[2020-01-10] MEDS: SEVELAMER CARBONATE 800 MG TABLET PO SCH ×3 (08:25→17:04)
[2020-01-10] MEDS: LISINOPRIL (20MG) 20 MG TABLET PO SCH (08:26)
[2020-01-10] MEDS: CARVEDILOL 6.25 MG TABLET PO SCH ×2 (08:27→21:56)
[2020-01-10] MEDS: BLOOD SUGAR DIAGNOSTIC 1 EACH STRIP VI SCH ×4 (08:28→21:58)
[2020-01-10] MEDS: NIFEdipine XL (30MG) 30 MG TAB PO SCH (08:28)
[2020-01-10] MEDS: LEVOFLOXACIN (250MG) 250 MG TABLET PO SCH (08:28)
[2020-01-10] MEDS: PANTOPRAZOLE 40 MG TABLET.DR PO SCH (08:29)
[2020-01-10] MEDS: *INSULIN REGULAR(HUMULIN R)HUM 100 UNIT/ML VIAL SQ PRN ×4 (08:33→21:50)
[2020-01-10 11:01] LABS: ABG BASE EXCESS -4.3 mmol/L; ABG OXYGEN SATURATION 93.8 % (92.0-98.5); ABG PCO2 27.8 mmHg (35.0-45.0); ABG PH 7.445 (7.350-7.450); ABG PO2 76.7 mmHg (75.0-100.0); AaDO2 320.5 mmHg; COHb 1.7 % (0.5-1.5); MetHb 0.3 % (0.0-1.5); O2Hb 91.9 % (94.0-97.0); SITE, ABG Right Radial; VENT MODE, BG simple mask
[2020-01-10] MEDS ORDERED: NEPRO VAN 237 ML CAN PO PRN (11:30)
[2020-01-10 12:00] VITALS: BP 123/53
--- NOTE | 2020-01-10 12:15 | NUR ---
RN NOTES HEMODIALYSIS STARTED. RN/AHMED AT BEDSIDE.
--- NOTE | 2020-01-10 14:06 | NUR ---
RN NOTES DIALYSIS FINISHED, 2L OUTPUT.
[2020-01-10 16:00] VITALS: BP 129/70
[2020-01-10] MEDS ORDERED: VANCOMYCIN 1 GM in IV D5W 250 ML IV ONE (17:00)
[2020-01-10] MEDS: MEROPENEM 500 MG in IV NS 0.9% 50 ML IV SCH (17:04)
--- NOTE | 2020-01-10 18:54 | NUR ---
RN NOTES PT REMAINS IN BED, AWAKE, TOGOLESE SPEAKING BUT CAN UNDERSTAND AND SPEAK ARABIC. PT ON SUPPLEMENTARY OXYGEN AT 6L VIA NC, WITH NO ACUTE RESPIRATORY DISTRESS NOTED, SATURATION OF 91-92%. PT DENIES ANY PAIN OR DISCOMFORT AT THIS TIME. TELEMONITORING SR 90. KRISTY FISTULA FOR HD ACCESS NOTED, HAD HD TODAY WITH 2L OUTPUT. PIV TO RAC G22, FLUSHED WITH NS INTACT AND OPERATIONAL, ON GOING IV VANCOMYCIN INFUSING. ALL NEEDS AND CARE ATTENDED. KEPT COMFORTABLE IN BED. CALL LIGHT KEPT WITHIN REACH. PT'S BED IN LOWEST, LOCKED POSITION WITH SRX3. WILL ENDORSE TO INCOMING NIGHT NURSE FOR JAZMYNE.
[2020-01-10] MEDS ORDERED: methylPREDNISolone SOD SUCC 40 MG/ML VIAL IV ONE (19:30)
[2020-01-10] MEDS ORDERED: TOCILIZUMAB 400 MG in IV NS 0.9% 80 ML IV ONE (19:30)
[2020-01-10] MEDS ORDERED: ACETAMINOPHEN 650 MG/20.3 ML UDC PO ONE (19:30)
[2020-01-10] MEDS ORDERED: diphenhydrAMINE HCL 50 MG/ML VIAL IV ONE (19:30)
[2020-01-10 20:00] VITALS: BP 142/80
--- NOTE | 2020-01-10 21:15 | NUR ---
administered medication documented as administered by sonya dick. unable to undo actions. administered benadryl 25mg ivp x1 as ordered solumedrol 40 mg ivp x1 as ordered and tylenol 650 mg po x1 as ordered. per report these medications to be administered prior to administering. galindo
[2020-01-10] MEDS: ATORVASTATIN 40 MG TABLET PO SCH (21:53)
[2020-01-10] MEDS: ZOLPIDEM TARTRATE 5 MG TABLET PO PRN (23:19)
[2020-01-11] VITALS: BP 144/82
[2020-01-11 04:00] VITALS: BP 110/63
[2020-01-11] MEDS: INSULIN REGULAR, HUMAN 100 UNIT/ML 3 ML VIAL SQ PRN ×4 (06:52→23:03)
[2020-01-11] MEDS: IPRATROPIUM/ALBUTEROL INHALER IH SCH ×3 (06:53→17:41)
[2020-01-11] MEDS: BLOOD SUGAR DIAGNOSTIC 1 EACH STRIP VI SCH ×4 (06:53→23:04)
--- NOTE | 2020-01-11 07:15 | NUR ---
RUBBER ROLLER GRINDER OPERATOR NOTES PATIENT IN BED ALERT ORIENTED X 3. NO ACUTE DISTRESS NOTED. NO SOB NOTED. IV ACCESS PATENT AND INTACT, NO REDNESS, NO SWELLING NOTED. HEAD OF BED ELEVATED. SAFETY MEASURES IN PLACE. CALL LIGHT WITHIN REACH. WILL CONTINUE TO MONITOR ACCORDINGLY.
[2020-01-11 08:00] VITALS: BP 122/74
[2020-01-11] MEDS ORDERED: VANCOMYCIN 500 MG in IV D5W 100 ML IV PRN (09:00)
[2020-01-11] MEDS: SEVELAMER CARBONATE 800 MG TABLET PO SCH ×3 (09:05→17:42)
[2020-01-11] MEDS: DEXAMETHASONE SOD PHOSPHATE 10 MG/ML VIAL IV SCH (09:05)
[2020-01-11] MEDS: PANTOPRAZOLE 40 MG TABLET.DR PO SCH (09:05)
[2020-01-11] MEDS: LISINOPRIL (20MG) 20 MG TABLET PO SCH (09:06)
[2020-01-11] MEDS: NIFEdipine XL (30MG) 30 MG TAB PO SCH (09:06)
[2020-01-11] MEDS: CARVEDILOL 6.25 MG TABLET PO SCH ×2 (09:07→23:01)
[2020-01-11 14:04] LABS: ALBUMIN 2.6 g/dL (3.4-5.0); BILIRUBIN,DIRECT 0.3 mg/dL (0.0-0.2); BILIRUBIN,TOTAL 0.9 mg/dL (0.2-1.0); TOTAL PROTEIN, SERUM 7.5 g/dL (6.4-8.2)
[2020-01-11] MEDS: MEROPENEM 500 MG in IV NS 0.9% 50 ML IV SCH (16:30)
--- NOTE | 2020-01-11 18:45 | NUR ---
CAMPAIGN WORKER NOTES PATIENT IN BED ALERT ORIENTED X 3. NO ACUTE DISTRESS NOTED. NO SOB NOTED. IV ACCESS PATENT AND INTACT, NO REDNESS, NO SWELLING NOTED. HEAD OF BED ELEVATED. NEEDS ATTENDED AND ANTICIPATED. SAFETY MEASURES IN PLACE. CALL LIGHT WITHIN REACH. WILL ENDORSE TO NIGHT NURSE FOR CONTINUITY OF CARE.
[2020-01-11 20:00] VITALS: BP 115/56
--- NOTE | 2020-01-11 20:44 | NUR ---
TELE2/RN DURING INITIAL ASSESSMENT, PATIENT WAS IN BED AWAKE, ALERT AND ORIENTED, COMFORTABLE, WATCHING TV, NO C/O PAIN, NO DISTRESS NOTED, CALL LIGHT IN REACH, WILL MONITOR.
[2020-01-11] MEDS: ATORVASTATIN 40 MG TABLET PO SCH (23:00)
[2020-01-12] VITALS: BP 127/67
[2020-01-12] MEDS: IPRATROPIUM/ALBUTEROL INHALER IH SCH ×4 (00:53→17:17)
--- NOTE | 2020-01-12 02:00 | NUR ---
TELE2/RN PATIENT IS SLEEPING AT THIS TIME APPEAR COMFORTABLE, NO DISTRESS NOTED, CALL LIGHT IN REACH. WILL CONTINUE TO MONITOR.
[2020-01-12 04:00] VITALS: BP 116/66
--- NOTE | 2020-01-12 06:06 | NUR ---
TELE2/RN PATIENT STILL SLEEPING AT THIS TIME, APPEAR COMFORTABLE NO SIGNS OF DISTRESS NOTED CALL LIGHT IN REACH, ALL NEEDS ATTENDED AT THIS TIME, WILL CONTINUE TO MONITOR.
[2020-01-12] MEDS: INSULIN REGULAR, HUMAN 100 UNIT/ML 3 ML VIAL SQ PRN ×4 (06:49→21:55)
[2020-01-12] MEDS: BLOOD SUGAR DIAGNOSTIC 1 EACH STRIP VI SCH ×4 (06:49→21:55)
[2020-01-12 08:00] VITALS: BP 132/67
--- NOTE | 2020-01-12 08:00 | NUR ---
PT RECEIVED ALERT AND ORIENTED X4 RESIDENT ON 2 L OF OXYGEN VIA NASAL CANULA NO sob PRESENT TO USE OF ACCESSORY MUSCLE USE NOTED. 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 PT ON DROPLET ISOLATION FOR COVID. PTHAS A KRISTY FISTULA. ON A RENAL DIET. ALL PT NEEDS MET AT THIS TIME WILL CONTINUE TO MONITOR
[2020-01-12 08:22] LABS: CALCIUM, SERUM 7.9 mg/dL (8.5-10.1); POTASSIUM 4.5 mmol/L (3.5-5.1)
[2020-01-12 08:58] LABS: CREATININE 15.8 mg/dL (0.6-1.3)
[2020-01-12 09:19] LABS: BASOPHILS # (AUTO) 0.1 /CMM (0.0-0.2); BASOPHILS % (AUTO) 0.5 % (0.0-2.0); EOSINOPHILS % (AUTO) 2.2 % (0.0-6.0); HEMATOCRIT 31 % (39-51); HEMOGLOBIN 10.1 g/dL (13.5-17.5); LYMPHOCYTES # (AUTO) 0.8 /CMM (0.8-4.8); LYMPHOCYTES % (AUTO) 7.2 % (20.0-44.0); MEAN CORPUSCULAR HGB CONC 33 g/dl (31.0-36.0); MEAN CORPUSCULAR VOLUME 93 fL (80-96); MONOCYTES # (AUTO) 0.6 /CMM (0.1-1.30); NEUTROPHILS # (AUTO) 9.8 /CMM (1.8-8.9); NEUTROPHILS % (AUTO) 85.1 % (43.0-81.0); PLATELET COUNT (AUTO) 388 /CMM (150-450); RED BLOOD CELL COUNT(AUTO) 3.34 MIL/uL (4.5-6.0); WHITE BLOOD COUNT (AUTO) 11.5 K/uL (4.3-11.0)
[2020-01-12] MEDS: SEVELAMER CARBONATE 800 MG TABLET PO SCH ×3 (10:47→17:13)
[2020-01-12] MEDS: PANTOPRAZOLE 40 MG TABLET.DR PO SCH (10:47)
[2020-01-12] MEDS: NIFEdipine XL (30MG) 30 MG TAB PO SCH (10:48)
[2020-01-12] MEDS: LISINOPRIL (20MG) 20 MG TABLET PO SCH (10:48)
[2020-01-12] MEDS: CARVEDILOL 6.25 MG TABLET PO SCH ×2 (10:49→21:00)
[2020-01-12] MEDS: DEXAMETHASONE SOD PHOSPHATE 10 MG/ML VIAL IV SCH (11:38)
[2020-01-12 13:00] VITALS: BP 113/64
[2020-01-12 16:00] VITALS: BP 117/83
[2020-01-12] MEDS: MEROPENEM 500 MG in IV NS 0.9% 50 ML IV SCH (17:11)
--- NOTE | 2020-01-12 18:30 | NUR ---
PT ALERT IN BED ORIENTED X 4 NO SOB NO PAIN OR DISCOMFORT NOTED OR REPORTED BY PT. ALL NURSING NEED MET CALL LIGHT WITHIN REACH WILL CONTINUE TO MONITOR.
[2020-01-12 20:00] VITALS: BP 112/56
--- NOTE | 2020-01-12 20:00 | NUR ---
TELE/RN OPENING NOTE Patient awake in bed, A/O x4. Breathing even, unlabored on 6LPM NC. O2sat 98%. No SOB or acute distress. Afebrile. PERRLA. Tele monitor reading sinus rhythm. No JVD. CRP <3seconds. Skin warm, pink, dry, appropriate for ethnicity. Fistula noted on KRISTY. IV site RAC 22g saline locked, patent and intact. No signs of redness or infiltration. R heel wound noted, dressing intact. Bed in low position, wheels locked, side rails up x2, call light within reach.
[2020-01-12] MEDS: ATORVASTATIN 40 MG TABLET PO SCH (21:51)
--- NOTE | 2020-01-12 21:52 | NUR ---
TELE/RN NOTE PO medications not administered at this time d/t patient is in dialysis. BP 112/56 HR82. Will continue to monitor.
--- NOTE | 2020-01-12 22:52 | NUR ---
TELE/RN NOTE Patient dialyzed today. Output 2500 ml. BP 115/65. Patient tolerated well. No adverse events. Will continue to monitor.
[2020-01-13] VITALS: BP_SYST 108; BP_SYST 112; BP_DIAS 58; BP_DIAS 75
[2020-01-13] MEDS: IPRATROPIUM/ALBUTEROL INHALER IH SCH ×4 (01:07→17:35)
[2020-01-13] MEDS: ZOLPIDEM TARTRATE 5 MG TABLET PO PRN ×2 (01:46→22:49)
[2020-01-13 03:58] VITALS: BP 134/85
[2020-01-13 04:00] VITALS: BP 134/85
[2020-01-13 06:36] LABS: BASOPHILS % (AUTO) 0.3 % (0.0-2.0); EOSINOPHILS % (AUTO) 1.8 % (0.0-6.0); HEMATOCRIT 30 % (39-51); HEMOGLOBIN 9.8 g/dL (13.5-17.5); LYMPHOCYTES # (AUTO) 0.8 /CMM (0.8-4.8); LYMPHOCYTES % (AUTO) 6.6 % (20.0-44.0); MEAN CORPUSCULAR HGB CONC 33 g/dl (31.0-36.0); MEAN CORPUSCULAR VOLUME 92 fL (80-96); MONOCYTES # (AUTO) 0.7 /CMM (0.1-1.30); MONOCYTES % (AUTO) 5.9 % (2.0-12.0); NEUTROPHILS # (AUTO) 10.1 /CMM (1.8-8.9); NEUTROPHILS % (AUTO) 85.4 % (43.0-81.0); PLATELET COUNT (AUTO) 448 /CMM (150-450); RED BLOOD CELL COUNT(AUTO) 3.22 MIL/uL (4.5-6.0); WHITE BLOOD COUNT (AUTO) 11.8 K/uL (4.3-11.0)
[2020-01-13] MEDS: INSULIN REGULAR, HUMAN 100 UNIT/ML 3 ML VIAL SQ PRN ×3 (06:45→17:34)
[2020-01-13] MEDS: BLOOD SUGAR DIAGNOSTIC 1 EACH STRIP VI SCH ×4 (06:47→21:58)
[2020-01-13 06:51] LABS: CALCIUM, SERUM 7.8 mg/dL (8.5-10.1); MAGNESIUM 2.5 mg/dL (1.8-2.4); PHOSPHORUS 7.5 mg/dL (2.5-4.9); POTASSIUM 5.2 mmol/L (3.5-5.1)
[2020-01-13 06:56] LABS: CREATININE 14.1 mg/dL (0.6-1.3)
[2020-01-13] MEDS: SEVELAMER CARBONATE 800 MG TABLET PO SCH ×3 (07:06→17:34)
--- NOTE | 2020-01-13 07:41 | NUR ---
TELE/RN CLOSING NOTE Patient awake in bed, A/O x4. Breathing even, unlabored on 6LPM NC. O2sat 98%. No SOB or acute distress. Tele monitor reading sinus rhythm. Skin warm, pink, dry, appropriate for ethnicity. Fistula noted on KRISTY. IV site RAC 22g saline locked, patent and intact. No signs of redness or infiltration. R heel wound noted, dressing intact. All scheduled medications administered as prescribed. All needs met. Bed in low position, wheels locked, side rails up x2, call light within reach.
[2020-01-13 08:00] VITALS: BP 139/74
[2020-01-13] MEDS: PANTOPRAZOLE 40 MG TABLET.DR PO SCH (09:48)
[2020-01-13] MEDS: CARVEDILOL 6.25 MG TABLET PO SCH ×2 (09:48→21:00)
[2020-01-13] MEDS: NIFEdipine XL (30MG) 30 MG TAB PO SCH (09:48)
[2020-01-13] MEDS: LISINOPRIL (20MG) 20 MG TABLET PO SCH (09:48)
[2020-01-13 12:00] VITALS: BP 128/84
[2020-01-13] MEDS: MEROPENEM 500 MG in IV NS 0.9% 50 ML IV SCH (16:10)
--- NOTE | 2020-01-13 16:43 | NUR ---
SALES REPRESENTATIVE GIRLS' APPAREL NOTES PATIENTS OXYGEN AT 4L VIA NASAL CANNULA, TOLERATING IT WELL.
--- NOTE | 2020-01-13 17:00 | NUR ---
SENIOR RESEARCH ANALYST NOTES PATIENT COMPLAINED OF SOB INCREASED O2 TO 5L. PATIENT SATURATING ABOVE 96 WILL CONTINUE TO MONITOR.
--- NOTE | 2020-01-13 19:29 | NUR ---
WORKERS COMPENSATION CLAIMS SUPERVISOR NOTES PATIENT IN BED RESTING. NO SOB OR ACUTE DISTRESS NOTED. ALL DUE MEDICATIONS ADMINISTERED. ALL NEEDS MET. NO ACUTE CHANGES NOTED. ENDORSED TO PM SHIFT TO TITRATE O2. PATIENTS CONVALESCENT PLASMA NOT READY PER LAB. SAFETY MEASURES IN PLACE ENDORSED CARE TO PM SHIFT.
--- NOTE | 2020-01-13 19:40 | NUR ---
GAMMA RAY OPERATOR OPENING NOTES PATIENT RECEIVED RESTING IN BED COMFORTABLY; A/OX4; TOLERATING 5LPM VIA NC WITH HUMIDIFIER; NO SOB NOTED; BREATHING EVEN AND UNLABORED; TELE MONITOR READS SINUS RHYTHM 90S; KRISTY FISTULA PRESENT; R AC # 22 S/L INTACT AND PATENT; FLUSHING WELL; NO S/S OF REDNESS OR INFILTRATION NOTED; ABLE TO MAKE NEEDS KNOWN; SAFETY PRECAUTIONS IMPLEMENTED; BED LOCKED IN LOW POSITION; SIDE RAILSX2; CALL LIGHT WITHIN REACH; WILL CONT TO MONITOR
[2020-01-13 20:00] VITALS: BP 107/53
[2020-01-13] MEDS: ATORVASTATIN 40 MG TABLET PO SCH (21:54)
[2020-01-13] MEDS: *INSULIN REGULAR(HUMULIN R)HUM 100 UNIT/ML VIAL SQ PRN (22:13)
--- NOTE | 2020-01-13 22:48 | NUR ---
CLINICAL INVESTIGATOR NOTES PATIENT REQUESTING SLEEPING MED; WILL ADMINISTER PER MD ORDER AND CONT TO MONITOR
[2020-01-14] VITALS (12 sets, daily range): BP systolic 104–132; BP diastolic 48–87
[2020-01-14] MEDS: IPRATROPIUM/ALBUTEROL INHALER IH SCH ×6 (00:16→23:49)
--- NOTE | 2020-01-14 05:21 | NUR ---
GUSSET MAKER NOTES HD NURSE AT BEDSIDE FOR HD; WILL CONT TO MONITOR
[2020-01-14] MEDS: BLOOD SUGAR DIAGNOSTIC 1 EACH STRIP VI SCH ×4 (06:31→21:40)
[2020-01-14] MEDS: INSULIN REGULAR, HUMAN 100 UNIT/ML 3 ML VIAL SQ PRN ×4 (06:32→22:35)
--- NOTE | 2020-01-14 06:46 | NUR ---
SPECIALTY TRANSFORMER ASSEMBLER CLOSING NOTES PATIENT RESTING IN BED COMFORTABLY; A/OX4, BREATHING EVEN AND UNLABORED; TOLERATING 5LPM VIA NC WITH HUMIDIFIER, TOLERATING WELL; TELE MONITOR READS SINUS RHYTHM; PATIENT ABLE TO MAKE NEEDS KNOWN; HEMODIALYSIS NURSE PRESENT AT BEDSIDE; TOLERATING HD WELL; NO DISTRESS NOTED; PATIENT BS 122, NO NEED FOR INSULIN COVERAGE; PATIENT AWARE; WILL INFORM DAY SHIFT REGARDING VANCO POST-HD; VANCO TROUGH COLLECTED BY MUSIC THERAPY SPECIALIST; PATIENT IS AMBULATORY WITH STEADY GAIT; KRISTY FISTULA PRESENT; R AC #22 S/L INTACT AND PATENT; FLUSHING WELL; NO S/S OF REDNESS OR INFILTRATION NOTED; ALL NEEDS RENDERED; SAFETY PRECAUTIONS IMPLEMENTED; BED LOCKED IN LOW POSITION; SIDE RAILSX2; CALL LIGHT WITHIN REACH; WILL ENDORSE JAZMYNE TO ONCOMING SHIFT
[2020-01-14 06:52] LABS: BASOPHILS # (AUTO) 0.1 /CMM (0.0-0.2); BASOPHILS % (AUTO) 0.5 % (0.0-2.0); EOSINOPHILS % (AUTO) 2.9 % (0.0-6.0); HEMATOCRIT 27 % (39-51); HEMOGLOBIN 8.9 g/dL (13.5-17.5); LYMPHOCYTES # (AUTO) 0.8 /CMM (0.8-4.8); LYMPHOCYTES % (AUTO) 6.8 % (20.0-44.0); MEAN CORPUSCULAR HGB CONC 33 g/dl (31.0-36.0); MEAN CORPUSCULAR VOLUME 93 fL (80-96); MONOCYTES # (AUTO) 0.7 /CMM (0.1-1.30); NEUTROPHILS # (AUTO) 9.4 /CMM (1.8-8.9); NEUTROPHILS % (AUTO) 83.8 % (43.0-81.0); PLATELET COUNT (AUTO) 406 /CMM (150-450); RED BLOOD CELL COUNT(AUTO) 2.87 MIL/uL (4.5-6.0); WHITE BLOOD COUNT (AUTO) 11.2 K/uL (4.3-11.0)
[2020-01-14 07:09] LABS: CALCIUM, SERUM 7.4 mg/dL (8.5-10.1); MAGNESIUM 2.5 mg/dL (1.8-2.4)
[2020-01-14 07:15] LABS: CREATININE 16.2 mg/dL (0.6-1.3)
[2020-01-14 07:16] LABS: PHOSPHORUS 9.1 mg/dL (2.5-4.9)
--- NOTE | 2020-01-14 07:48 | NUR ---
TELE/RN OPENING NOTES RECEIVED PATIENT IS ON BED, AWAKE, ALERT AND ORIENTED X 3. NO COMPLAINED OF PAIN AT THIS TIME. PATIENT IN NO APPARENT RESPIRATORY DISTRESS NOTED. TELE MONITOR READING SR 89 BPM. OXYGEN AT 5L/MIN TOLERATING WILL. WILL CONTINUE TO MONITOR.
[2020-01-14] MEDS: CARVEDILOL 6.25 MG TABLET PO SCH ×2 (09:00→21:44)
[2020-01-14] MEDS: LISINOPRIL (20MG) 20 MG TABLET PO SCH (09:00)
[2020-01-14] MEDS: SEVELAMER CARBONATE 800 MG TABLET PO SCH ×3 (09:01→17:07)
[2020-01-14] MEDS: PANTOPRAZOLE 40 MG TABLET.DR PO SCH (09:01)
[2020-01-14] MEDS: NIFEdipine XL (30MG) 30 MG TAB PO SCH (09:01)
--- NOTE | 2020-01-14 10:39 | NUR ---
TELE/RN NOTES PATIENT NOTED WITH MINIMAL FRESH BLOOD IN THE STOOL SELENE LIZ IS AWARE. NO NEW ORDER AT THIS TIME.
--- NOTE | 2020-01-14 12:36 | NUR ---
TELE/RN NOTES PATIENT COMPLAINED OF NAUSEA AND VOMITING, ONDANSETRON 4 MG IV WAS GIVEN. WILL CONTINUE TO MONITOR.
[2020-01-14] MEDS: MEROPENEM 500 MG in IV NS 0.9% 50 ML IV SCH (17:13)
--- NOTE | 2020-01-14 19:20 | NUR ---
RN OPENING NOTES RECEIVED PT IN BED. RESTING. ISOLATION PRECAUTIONS IN PLACE PER POSITIVE COVID 19 RESULT. PT IS A/O X4. PREFERABLY [place] SPEAKING, BUT ABLE TO MAKE NEEDS KNOWN CITIZEN OF [place] AND [place]. PT IS CURRENTLY ON 5L OF O2 WITH HUMIDIFICATION. TOLERATING WELL. NO S/S OF RESP DISTRESS OR SHORTNESS OF BREATH NOTED AT THIS TIME. PT BREATHING IS EVEN AND UNLABORED. ON TELE MONITORING, CURRENTLY PRESENTS WITH NORMAL SR HEART RATE 98-103 BASELINE TO PT. LEFT AV SHUNT PRESENT, SIGN POSTED FOR NO BP OR LAB DRAW ON LEFT SIDE. PT HAD DIALYSIS TODAY, VERBALIZED WENT WELL AND IS TIRED AND REQUESTS TO REST. PT IV SITE RIGHT AC FLUSHED SL. SAFE MEASURES IN PLACE. HOB ELEVATED TOLERATED. PT HAS BRP. SIDE RAILS UP X2. BED LOCKED IN LOWEST POSITION. CALL LIGHT WITHIN REACH. WILL CONTINUE TO MONITOR.
--- NOTE | 2020-01-14 19:46 | NUR ---
TELE/RN CLOSING NOTES PATIENT IS ON BED. ALERT AND ORIENTED X4. PATIENT IN NO APPARENT RESPIRATORY DISTRESS NOTED. NO COMPLAINED OF PAIN NOTED AT THIS TIME. TELE MONITOR READING SINUS RHYTHM 98 BPM. SEEN AND EXAMINED BY MD WITH ORDERS. IV ACCESS AT RIGHT AC # 22 G PATENT AND INTACT. ALL DUE MEDICATION WAS GIVEN. SAFETY PRECAUTIONS WAS IN PLACED. BED IN LOWEST POSITION AND LOCKED. SIDERAILS UP X2. CALL LIGHT WITHIN REACH. WILL ENDORSED TO RN STAFFING FOR JAZMYNE.
[2020-01-14] MEDS: ATORVASTATIN 40 MG TABLET PO SCH (21:44)
--- NOTE | 2020-01-14 23:50 | NUR ---
INHALER NOT PRESENT AT BEDSIDE OR IN STOCK/MED NOT AVAILABLE. WILL F/U. PT CURRENTLY NOT IN DISTRESS, NO SOB NOTED. PT RESTING COMFORTABLY ON NASAL CANNULA. CHARGE NURSE MADE AWARE. NURSING NURSE COMPANION MADE AWARE. WILL CONTINUE TO MONITOR.
[2020-01-15] VITALS: BP 127/70
[2020-01-15] MEDS ORDERED: ALBUTEROL SULFATE 8 GM HFA.AER.AD ONE (00:46)
--- NOTE | 2020-01-15 00:57 | NUR ---
WILL F/U WITH PHARMACY AND ONCOMING NURSE FOR INHALER IN THE MORNING. NURSING ANIMAL HUMANE AGENT SUPERVISOR AWARE.
--- NOTE | 2020-01-15 02:42 | NUR ---
PT RESTING WELL UPON ROUNDS, NO DISTRESS NOTED. PT COMFORTABLE. DENIES PAIN. NEEDS ATTENDED.
[2020-01-15 04:17] VITALS: BP 124/70
[2020-01-15] MEDS: IPRATROPIUM/ALBUTEROL INHALER IH SCH ×3 (06:00→17:09)
[2020-01-15 06:11] LABS: BASOPHILS # (AUTO) 0.1 /CMM (0.0-0.2); BASOPHILS % (AUTO) 0.8 % (0.0-2.0); EOSINOPHILS % (AUTO) 2.3 % (0.0-6.0); HEMATOCRIT 26 % (39-51); HEMOGLOBIN 8.6 g/dL (13.5-17.5); LYMPHOCYTES # (AUTO) 0.5 /CMM (0.8-4.8); LYMPHOCYTES % (AUTO) 4.7 % (20.0-44.0); MEAN CORPUSCULAR HGB CONC 34 g/dl (31.0-36.0); MEAN CORPUSCULAR VOLUME 95 fL (80-96); MONOCYTES # (AUTO) 0.6 /CMM (0.1-1.30); NEUTROPHILS # (AUTO) 8.4 /CMM (1.8-8.9); NEUTROPHILS % (AUTO) 86.2 % (43.0-81.0); PLATELET COUNT (AUTO) 391 /CMM (150-450); RED BLOOD CELL COUNT(AUTO) 2.72 MIL/uL (4.5-6.0); WHITE BLOOD COUNT (AUTO) 9.8 K/uL (4.3-11.0)
--- NOTE | 2020-01-15 06:27 | NUR ---
UNABLE TO ADMINISTER INHALER AT THIS TIME, INFORMED PHARMACY. SAID THEY WILL SEND ANOTHER INHALER. AT THIS TIME PT IS NOT IN ANY DISTRESS, NO SOB NOTED. NO DIFFICULTY BREATHING. TOLERATING NASAL CANNULA AT 5L AT THIS TIME. WILL CONTINUE TO MONITOR.
[2020-01-15] MEDS: BLOOD SUGAR DIAGNOSTIC 1 EACH STRIP VI SCH ×4 (06:34→21:09)
[2020-01-15 06:35] LABS: CALCIUM, SERUM 7.3 mg/dL (8.5-10.1); MAGNESIUM 2.3 mg/dL (1.8-2.4); PHOSPHORUS 6.3 mg/dL (2.5-4.9); POTASSIUM 4.7 mmol/L (3.5-5.1)
[2020-01-15 06:41] LABS: CREATININE 12.7 mg/dL (0.6-1.3)
[2020-01-15] MEDS: INSULIN REGULAR, HUMAN 100 UNIT/ML 3 ML VIAL SQ PRN ×3 (06:52→17:08)
--- NOTE | 2020-01-15 07:03 | NUR ---
RN CLOSING NOTES PT IS CURRENTLY RESTING IN BED. NO SIGNIFICANT CHANGES THROUGHOUT MY SHIFT, PT SLEPT WELL. AFEBRILE. PT DENIES PAIN AT THIS TIME. NO S/S OF RESPIRATORY DISTRESS NOTED. PT ON 5L VIA NASAL CANNULA. PT TOLERATING WELL. BREATHING IS EVEN AND UNLABORED AT THIS TIME. PT STILL ON TELE MONITOR. PRESENTING WITH BASELINE HEART RHYTHM NSR. IV SITE SL. PT IS AFEBRILE, DENIES PAIN. NEEDS ATTENDED. SAFETY MEASURES IN PLACE. HOB ELEVATED TOLERATED. BED IS LOCKED IN LOWEST POSITION. SIDE RAILS UP X2. CALL LIGHT WITHIN REACH. WILL ENDORSE TO MORNING NURSE FOR CONTINUATION OF CARE.
[2020-01-15 08:00] VITALS: BP 128/75
--- NOTE | 2020-01-15 08:00 | NUR ---
RN Opening note Received patient in bed AO x 4 able to responds all stimuli, does no appears pain or discomfort. Skin is warm to touch keep clean/dry, intact IV site on right AC 22g and left upper arm AV fist. Respiratory even and unlabored with oxygen at 5LPM O2sat 95%, no sob or distress observed. Kept bed locked with elevated HOB for ensure airway and aspiration precaution also lowest bed position for safety. Call light within reach will continue to monitor.
[2020-01-15] MEDS: CARVEDILOL 6.25 MG TABLET PO SCH ×2 (08:18→21:00)
[2020-01-15] MEDS: SEVELAMER CARBONATE 800 MG TABLET PO SCH ×3 (08:18→17:05)
[2020-01-15] MEDS: PANTOPRAZOLE 40 MG TABLET.DR PO SCH (08:19)
[2020-01-15] MEDS: LISINOPRIL (20MG) 20 MG TABLET PO SCH (09:00)
[2020-01-15] MEDS: NIFEdipine XL (30MG) 30 MG TAB PO SCH (09:00)
[2020-01-15 12:00] VITALS: BP 93/65
[2020-01-15 15:58] VITALS: BP 134/68
[2020-01-15] MEDS: MEROPENEM 500 MG in IV NS 0.9% 50 ML IV SCH (16:03)
--- NOTE | 2020-01-15 18:15 | NUR ---
RN Closing note Patient in bed resting finished eat dinner does no appears pain or distress. Skin is warm to touch intact IV site on right FA 22g and AV shunt on left upper arm. Respiratory even and unlabored with oxygen at 3LPM O2sat 93%. Kept locked bed with elevated HOB for ensure airway and aspiration precaution also lowest position for safety, call light within reach, will endorse shift production associate.
--- NOTE | 2020-01-15 19:36 | NUR ---
RN OPENING NOTES Patient received resting in bed A/O x 4. On 3L of O2 with breathing even and unlabored, no sob noted. No signs of acute distress. No current complaints of pain or discomfort. Tele monitor reading SR. L AV fistula noted and in place. IV located R AC #22 patent and intact. Safety precautions in place with bed in lowest position, call light within reach, breaks on, side rails up. Will continue to monitor throughout the night.
[2020-01-15 20:00] VITALS: BP 142/50
[2020-01-15] MEDS: ATORVASTATIN 40 MG TABLET PO SCH (21:04)
[2020-01-15] MEDS: *INSULIN REGULAR(HUMULIN R)HUM 100 UNIT/ML VIAL SQ PRN (21:12)
[2020-01-16] VITALS: BP 154/57
[2020-01-16] MEDS: IPRATROPIUM/ALBUTEROL INHALER IH SCH ×4 (00:19→17:28)
[2020-01-16 04:00] VITALS: BP 144/40
[2020-01-16] MEDS: BLOOD SUGAR DIAGNOSTIC 1 EACH STRIP VI SCH ×4 (06:38→21:35)
[2020-01-16] MEDS: INSULIN REGULAR, HUMAN 100 UNIT/ML 3 ML VIAL SQ PRN ×3 (06:38→18:32)
--- NOTE | 2020-01-16 06:47 | NUR ---
RN OPENING NOTES Patient resting in bed A/O x 4. On 3L of O2 with breathing even and unlabored, no sob noted. No signs of acute distress. No current complaints of pain or discomfort. Tele monitor reading SR. Buchanan AV fistula noted and in place. IV located R AC #22 patent and intact. Safety precautions in place with bed in lowest position, call light within reach, breaks on, side rails up. All needs attended to. Will endorse to oncoming shift about luis alfredo. Addendum: 01/16/20 at 0653 by CLAUDE FORTE RN RN CLOSING NOTES
--- NOTE | 2020-01-16 07:46 | NUR ---
EXECUTIVE RECRUITER OPEN NOTES PATIENT IS A/O X 4 WITH NO SIGNS OF DISTRESS ON 3L OF NASAL CANNULA. NO COMPLAIN OF PAIN AT THIS TIME. TELE MONITOR. IV R AC #22G SL AND L UA AV FISTULA. SAFETY MEASURES ARE APPLIED, BED IS IN LOW POSITION SIDE RAILS UP X 2. CALL LIGHT WITHIN REACH WILL CONTINUE TO MONITOR.
[2020-01-16 08:00] VITALS: BP 148/63
[2020-01-16 08:08] LABS: CALCIUM, SERUM 7.2 mg/dL (8.5-10.1); POTASSIUM 4.9 mmol/L (3.5-5.1)
[2020-01-16 08:12] LABS: CREATININE 15.4 mg/dL (0.6-1.3)
[2020-01-16] MEDS: PANTOPRAZOLE 40 MG TABLET.DR PO SCH (08:13)
[2020-01-16] MEDS: SEVELAMER CARBONATE 800 MG TABLET PO SCH ×3 (08:13→17:28)
[2020-01-16] MEDS: CARVEDILOL 6.25 MG TABLET PO SCH ×2 (09:00→21:35)
[2020-01-16] MEDS: NIFEdipine XL (30MG) 30 MG TAB PO SCH (09:00)
[2020-01-16] MEDS: LISINOPRIL (20MG) 20 MG TABLET PO SCH (09:00)
[2020-01-16 16:00] VITALS: BP 146/87
[2020-01-16] MEDS: MEROPENEM 500 MG in IV NS 0.9% 50 ML IV SCH (16:43)
--- NOTE | 2020-01-16 18:53 | NUR ---
FRUIT GRADING SUPERVISOR CLOSED NOTES PATIENT IS A/O X 4 WITH NO SIGNS OF DISTRESS ON 3L OF NASAL CANNULA. NO COMPLAIN OF PAIN AT THIS TIME. TELE MONITOR SR 93. IV R AC #22G SL AND L UA AV FISTULA. HD TODAY, TOOK OUT 2L. PATIENT KEPT CLEAN AND DRY. ALL NEEDS, CARE, TREATMENT,AND MEDICATIONS WERE ADMINISTERED ANTICIPATED PER ORDER. SAFETY MEASURES ARE APPLIED, BED IS IN LOW POSITION SIDE RAILS UP X 2. CALL LIGHT WITHIN REACH WILL ENDORSE TO THE LIE DETECTOR OPERATOR NURSE.
[2020-01-16 20:00] VITALS: BP 127/75
[2020-01-16] MEDS: ATORVASTATIN 40 MG TABLET PO SCH (21:35)
[2020-01-16] MEDS: *INSULIN REGULAR(HUMULIN R)HUM 100 UNIT/ML VIAL SQ PRN (21:39)
[2020-01-17] VITALS: BP 119/57
[2020-01-17] MEDS: IPRATROPIUM/ALBUTEROL INHALER IH SCH ×4 (00:30→18:07)
[2020-01-17] MEDS: BLOOD SUGAR DIAGNOSTIC 1 EACH STRIP VI SCH ×4 (07:03→22:42)
[2020-01-17] MEDS: INSULIN REGULAR, HUMAN 100 UNIT/ML 3 ML VIAL SQ PRN ×3 (07:05→18:08)
--- NOTE | 2020-01-17 07:30 | NUR ---
B2B ACCOUNT EXECUTIVE NOTE PATIENT IN BED RESTING COMFORTABLY. PATIENT IN NO ACUTE DISTRESS. NO SOB NOTED. PATIENT BREATHING IS EVEN AND UNLABORED. PATIENT ON CARDIAC MONITORING READING SINUS RHYTHM HR 90. PATIENT SAFETY PRECAUTIONS IN PLACE. BED ALARM IS ON. PATIENT BED IS LOCKED AND IN LOWEST POSITION. CALL LIGHT WITHIN REACH. WILL CONTINUE TO MONITOR.
[2020-01-17 07:34] VITALS: BP 125/71
[2020-01-17 07:36] LABS: BASOPHILS # (AUTO) 0.1 /CMM (0.0-0.2); BASOPHILS % (AUTO) 1.8 % (0.0-2.0); EOSINOPHILS % (AUTO) 1.9 % (0.0-6.0); HEMATOCRIT 23 % (39-51); HEMOGLOBIN 7.5 g/dL (13.5-17.5); LYMPHOCYTES # (AUTO) 0.4 /CMM (0.8-4.8); LYMPHOCYTES % (AUTO) 5.7 % (20.0-44.0); MEAN CORPUSCULAR HGB CONC 33 g/dl (31.0-36.0); MEAN CORPUSCULAR VOLUME 96 fL (80-96); MONOCYTES # (AUTO) 0.6 /CMM (0.1-1.30); MONOCYTES % (AUTO) 7.7 % (2.0-12.0); NEUTROPHILS # (AUTO) 6.4 /CMM (1.8-8.9); NEUTROPHILS % (AUTO) 82.9 % (43.0-81.0); PLATELET COUNT (AUTO) 380 /CMM (150-450); RED BLOOD CELL COUNT(AUTO) 2.36 MIL/uL (4.5-6.0); WHITE BLOOD COUNT (AUTO) 7.7 K/uL (4.3-11.0)
[2020-01-17 07:43] LABS: CALCIUM, SERUM 7.7 mg/dL (8.5-10.1); MAGNESIUM 2.3 mg/dL (1.8-2.4); POTASSIUM 4.4 mmol/L (3.5-5.1)
[2020-01-17 07:54] LABS: CREATININE 12.5 mg/dL (0.6-1.3)
[2020-01-17 08:00] VITALS: BP 156/57
--- NOTE | 2020-01-17 08:10 | NUR ---
PLATFORM ARCHITECT NOTE PATIENT BUN 83 AND CRE 12.5. INFORMED SELENE LIZ AND HE IS MADE AWARE. NOTIFIED DR. [place]. PATIENT IN NO ACUTE DISTRESS. WILL CONTINUE TO MONITOR.
[2020-01-17] MEDS: SEVELAMER CARBONATE 800 MG TABLET PO SCH ×3 (09:29→18:07)
[2020-01-17] MEDS: NIFEdipine XL (30MG) 30 MG TAB PO SCH (09:29)
[2020-01-17] MEDS: LISINOPRIL (20MG) 20 MG TABLET PO SCH (09:30)
[2020-01-17] MEDS: CARVEDILOL 6.25 MG TABLET PO SCH ×2 (09:30→21:34)
[2020-01-17] MEDS: PANTOPRAZOLE 40 MG TABLET.DR PO SCH (09:30)
--- NOTE | 2020-01-17 10:00 | NUR ---
STEEL CHIPPER NOTE INFORMED SELENE SHALONDA OF CHEST XRAY RESULT FROM TODAY. NO NEW ORDERS AT THIS TIME.
[2020-01-17 12:00] VITALS: BP 134/57
[2020-01-17 16:00] VITALS: BP 105/49
[2020-01-17] MEDS: HEPARIN SODIUM, PORCINE 5000 UNITS/1 ML VIAL SQ SCH (16:03)
--- NOTE | 2020-01-17 18:38 | NUR ---
SUPERVISOR PRESSING DEPARTMENT NOTE PATIENT IN BED RESTING COMFORTABLY. PATIENT IN NO ACUTE DISTRESS. NO SOB NOTED. PATIENT BREATHING IS EVEN AND UNLABORED. PATIENT ON CARDIAC MONITORING READING SINUS RHYTHM HR 86. PATIENT KEPT CLEAN, DRY, AND COMFORTABLE. NEEDS AND CONCERNS ADDRESSED. PATIENT SAFETY PRECAUTIONS IN PLACE. BED ALARM IS ON. PATIENT BED IS LOCKED AND IN LOWEST POSITION. CALL LIGHT WITHIN REACH. WILL ENDORSE CARE TO PM SHIFT FOR JAZMYNE.
--- NOTE | 2020-01-17 19:37 | NUR ---
CAREER DEVELOPMENT SPECIALIST NOTES RECEIVED PATIENT IN BED RESTING COMFORTABLY. PATIENT IN NO ACUTE DISTRESS. NO SOB NOTED. PATIENT BREATHING IS EVEN AND UNLABORED. PATIENT ON CARDIAC MONITORING READING SINUS RHYTHM HR 84. PATIENT KEPT CLEAN, DRY, AND COMFORTABLE. SAFETY PRECAUTIONS IN PLACE. BED ALARM IS ON. PATIENT BED IS LOCKED AND IN LOWEST POSITION. CALL LIGHT WITHIN EASY REACH. ALL NEEDS ANTICIPATED. WILL CONTINUE TO MONITOR ACCORDINGLY.
[2020-01-17] MEDS: ATORVASTATIN 40 MG TABLET PO SCH (21:34)
[2020-01-17] MEDS: *INSULIN REGULAR(HUMULIN R)HUM 100 UNIT/ML VIAL SQ PRN (22:43)
[2020-01-18 00:20] VITALS: BP 104/52
[2020-01-18] MEDS: ZOLPIDEM TARTRATE 5 MG TABLET PO PRN (00:29)
[2020-01-18] MEDS: HEPARIN SODIUM, PORCINE 5000 UNITS/1 ML VIAL SQ SCH ×4 (00:30→23:57)
[2020-01-18] MEDS: IPRATROPIUM/ALBUTEROL INHALER IH SCH ×5 (00:31→23:57)
[2020-01-18] MEDS: ACETAMINOPHEN 325 MG TABLET PO PRN (03:15)
[2020-01-18 04:56] VITALS: BP 134/68
--- NOTE | 2020-01-18 06:46 | NUR ---
COMPRESSOR STATION CHIEF ENGINEER NOTES RECEIVED PATIENT IN BED RESTING COMFORTABLY. PATIENT IN NO ACUTE DISTRESS. NO SOB NOTED. PATIENT BREATHING IS EVEN AND UNLABORED. PATIENT ON CARDIAC MONITORING READING SINUS RHYTHM HR 80s. PATIENT KEPT CLEAN, DRY, AND COMFORTABLE. SAFETY PRECAUTIONS IN PLACE. BED ALARM IS ON. PATIENT BED IS LOCKED AND IN LOWEST POSITION. CALL LIGHT WITHIN EASY REACH. ALL NEEDS ANTICIPATED. WILL ENDORSE TO AM NURSE FOR CONTINUITY OF CARE.
[2020-01-18] MEDS: BLOOD SUGAR DIAGNOSTIC 1 EACH STRIP VI SCH ×4 (06:55→21:42)
[2020-01-18] MEDS: INSULIN REGULAR, HUMAN 100 UNIT/ML 3 ML VIAL SQ PRN ×3 (06:56→17:26)
--- NOTE | 2020-01-18 07:20 | NUR ---
MS RN RECEIVED ON BED, AWAKE,ALERT.ORIENTED X4,NOT IN ANY FORM OF DISTRESS, HEMODIALYSIS JUST BEGAN AT THIS TIME, WILL MONITOR PATIENT'S CONDITION.
[2020-01-18] MEDS: SEVELAMER CARBONATE 800 MG TABLET PO SCH ×3 (08:00→17:21)
[2020-01-18 08:05] LABS: CALCIUM, SERUM 7.5 mg/dL (8.5-10.1); MAGNESIUM 2.4 mg/dL (1.8-2.4); PHOSPHORUS 6.1 mg/dL (2.5-4.9); POTASSIUM 4.6 mmol/L (3.5-5.1)
[2020-01-18 08:37] LABS: CREATININE 14.3 mg/dL (0.6-1.3)
--- NOTE | 2020-01-18 09:00 | NUR ---
MS RN PATIENT'S MEDICATIONS HELD AT THIS TIME SINCE HD WILL WASH IT OUT.
[2020-01-18 09:09] LABS: BASOPHILS # (AUTO) 0.3 /CMM (0.0-0.2); BASOPHILS % (AUTO) 3.8 % (0.0-2.0); HEMATOCRIT 21 % (39-51); HEMOGLOBIN 7.1 g/dL (13.5-17.5); LYMPHOCYTES # (AUTO) 0.5 /CMM (0.8-4.8); LYMPHOCYTES % (AUTO) 7.3 % (20.0-44.0); MEAN CORPUSCULAR HGB CONC 34 g/dl (31.0-36.0); MEAN CORPUSCULAR VOLUME 95 fL (80-96); MONOCYTES # (AUTO) 0.6 /CMM (0.1-1.30); MONOCYTES % (AUTO) 9.2 % (2.0-12.0); NEUTROPHILS # (AUTO) 5.3 /CMM (1.8-8.9); NEUTROPHILS % (AUTO) 77.7 % (43.0-81.0); PLATELET COUNT (AUTO) 368 /CMM (150-450); RED BLOOD CELL COUNT(AUTO) 2.22 MIL/uL (4.5-6.0); WHITE BLOOD COUNT (AUTO) 6.8 K/uL (4.3-11.0)
--- NOTE | 2020-01-18 10:30 | NUR ---
MS JAZLYN HD DONE W/ 2000ML OUTPUT, TOLERATED WELL.WILL MONITOR PATIENT.
[2020-01-18] MEDS: LISINOPRIL (20MG) 20 MG TABLET PO SCH (12:54)
[2020-01-18] MEDS: PANTOPRAZOLE 40 MG TABLET.DR PO SCH (12:54)
[2020-01-18] MEDS: CARVEDILOL 6.25 MG TABLET PO SCH ×2 (12:54→20:46)
[2020-01-18] MEDS: NIFEdipine XL (30MG) 30 MG TAB PO SCH (12:55)
--- NOTE | 2020-01-18 13:00 | NUR ---
MS RN MEDS GIVEN,TOLERATED WELL.
[2020-01-18 13:30] VITALS: BP 115/64
--- NOTE | 2020-01-18 14:00 | NUR ---
MS JAZLYN LIZ'S SKIMMER SCOOP OPERATOR CAME AND EVALUATE PATIENT, WAS AWARE W/ HGD-7.1, NO ORDER FOR BLOOD AT THIS TIME.
--- NOTE | 2020-01-18 15:46 | NUR ---
MS RN ON BED, ALL NEEDS ATTENDED.
[2020-01-18 17:26] VITALS: BP 139/67
[2020-01-18 20:00] VITALS: BP_SYST 137; BP_DIAS 50; BP_DIAS 60
--- NOTE | 2020-01-18 20:00 | NUR ---
RN NOTES RECEIVED PT. AWAKE ON BED, A/OX4, SR ON TELE MONITOR HR-94, NOT IN DISTRESS, DENIES PAIN, O2 ON 4L SATURATING 98%, BED IN LOCKED POSITION, CALL LIGHT WITHIN REACH, SIDERAILSUPX2, CONTINUE TO MONITOR
[2020-01-18] MEDS: ATORVASTATIN 40 MG TABLET PO SCH (21:43)
[2020-01-18] MEDS: *INSULIN REGULAR(HUMULIN R)HUM 100 UNIT/ML VIAL SQ PRN (21:47)
[2020-01-19] VITALS (7 sets, daily range): BP systolic 101–135; BP diastolic 30–72
[2020-01-19] MEDS: IPRATROPIUM/ALBUTEROL INHALER IH SCH ×3 (05:39→18:08)
--- NOTE | 2020-01-19 06:19 | NUR ---
RN NOTES AWAKE, NOT IN DISTRESS, DENIES PAIN, MORNING CARE RENDERED, PT NEEDS ATTENDED
[2020-01-19] MEDS: INSULIN REGULAR, HUMAN 100 UNIT/ML 3 ML VIAL SQ PRN ×2 (06:30→18:15)
[2020-01-19] MEDS: BLOOD SUGAR DIAGNOSTIC 1 EACH STRIP VI SCH ×4 (06:31→22:21)
[2020-01-19] MEDS: HEPARIN SODIUM, PORCINE 5000 UNITS/1 ML VIAL SQ SCH ×2 (08:00→16:00)
[2020-01-19 08:12] LABS: BASOPHILS # (AUTO) 0.2 /CMM (0.0-0.2); BASOPHILS % (AUTO) 2.5 % (0.0-2.0); EOSINOPHILS % (AUTO) 2.5 % (0.0-6.0); HEMATOCRIT 21 % (39-51); LYMPHOCYTES # (AUTO) 0.7 /CMM (0.8-4.8); LYMPHOCYTES % (AUTO) 10.9 % (20.0-44.0); MEAN CORPUSCULAR HGB CONC 33 g/dl (31.0-36.0); MEAN CORPUSCULAR VOLUME 98 fL (80-96); MONOCYTES # (AUTO) 0.7 /CMM (0.1-1.30); MONOCYTES % (AUTO) 9.8 % (2.0-12.0); NEUTROPHILS # (AUTO) 5.1 /CMM (1.8-8.9); NEUTROPHILS % (AUTO) 74.3 % (43.0-81.0); PLATELET COUNT (AUTO) 363 /CMM (150-450); RED BLOOD CELL COUNT(AUTO) 2.13 MIL/uL (4.5-6.0); WHITE BLOOD COUNT (AUTO) 6.8 K/uL (4.3-11.0)
--- NOTE | 2020-01-19 08:13 | NUR ---
RN NOTES RECEIVED PT. AWAKE ON BED, A/OX4, NO SIGNS OF DISTRESS VISIBLE OR REPORTED, NO PAIN REPORTED AT THIS TIME.ON 4L OF O2 VIA NASAL CANULA O2 SATURATION 98%, BED IN LOCKED POSITION, CALL LIGHT WITHIN REACH, PT HAS A LEFT UPPER ARM AV FISTULA AND IV ACCESS ON THE RIGHT AC NO SIGNS OF RED NESS PAIN OR SWELLING NOTED AT SITE,ALL NURSING NEEDS MET CONTINUE TO MONITOR
[2020-01-19 08:37] LABS: MAGNESIUM 2.4 mg/dL (1.8-2.4); POTASSIUM 4.8 mmol/L (3.5-5.1)
[2020-01-19 08:43] LABS: HEMOGLOBIN 6.9 g/dL (13.5-17.5)
[2020-01-19 08:52] LABS: CREATININE 12.2 mg/dL (0.6-1.3)
[2020-01-19 08:53] LABS: EOSINOPHILS % (MANUAL) 3 % (0-4); LYMPHOCYTES % (MANUAL) 6 % (16-48); MONOCYTES % (MANUAL) 11 % (0-11.0); NEUTROPHILS % (MANUAL) 80 (42-76)
[2020-01-19] MEDS: SEVELAMER CARBONATE 800 MG TABLET PO SCH ×3 (09:12→18:08)
[2020-01-19] MEDS: PANTOPRAZOLE 40 MG TABLET.DR PO SCH (09:12)
[2020-01-19] MEDS: LISINOPRIL (20MG) 20 MG TABLET PO SCH (09:12)
[2020-01-19] MEDS: NIFEdipine XL (30MG) 30 MG TAB PO SCH (09:22)
[2020-01-19] MEDS: CARVEDILOL 6.25 MG TABLET PO SCH ×2 (09:23→22:09)
--- NOTE | 2020-01-19 10:00 | NUR ---
HGB WAS 6.9 NOTIFIED SELENE,DNP AND HELD THE HEPARIN SC
[2020-01-19] MEDS: *INSULIN REGULAR(HUMULIN R)HUM 100 UNIT/ML VIAL SQ PRN ×3 (13:08→22:22)
--- NOTE | 2020-01-19 18:29 | NUR ---
RN NOTES PT. AWAKE ON BED, A/OX4, NO SIGNS OF DISTRESS VISIBLE OR REPORTED, NO PAIN REPORTED AT THIS TIME.ON 4L OF O2 VIA NASAL CANULA O2 SATURATION 98%, BED IN LOCKED POSITION, CALL LIGHT WITHIN REACH, PT HAS A LEFT UPPER ARM AV FISTULA AND IV ACCESS ON THE RIGHT AC NO SIGNS OF REDNESS PAIN OR SWELLING NOTED AT SITE,ALL NURSING NEEDS MET CONTINUE TO MONITOR
--- NOTE | 2020-01-19 19:30 | NUR ---
TELE/RN OPENING NOTES RECEIVED PATIENT IN BED RESTING. PATIENT IS ALERT AND ORIENTED X 4. PATIENT IN NO SIGNS OF SOB OR RESPIRATORY DISTRESS NOTED.BREATHING IS EVEN AND UNLABORED. NO DISTRESS NOTED. PATIENT HAS RIGHT AC IV ACCESS #22G AND KRISTY AV FISTULA. SAFETY MEASURES ARE IN PLACE, BED IS LOCKED AND PLACED IN THE LOW POSITION, SIDE RAILS UP X 3, CALL LIGHT IS WITHIN REACH. WILL CONTINUE TO MONITOR THROUGH OUT SHIFT.
[2020-01-19] MEDS: ATORVASTATIN 40 MG TABLET PO SCH (22:09)
[2020-01-20] VITALS (9 sets, daily range): BP systolic 101–140; BP diastolic 45–77
[2020-01-20] MEDS: IPRATROPIUM/ALBUTEROL INHALER IH SCH ×4 (00:29→18:04)
[2020-01-20] MEDS: HEPARIN SODIUM, PORCINE 5000 UNITS/1 ML VIAL SQ SCH ×3 (00:33→16:00)
--- NOTE | 2020-01-20 04:00 | NUR ---
TELE/RN NOTES PATIENT BLOOD TRANSFUSING COMPLETE. V/S ARE STABLE, PATIENT IN NO DISTRESS.
[2020-01-20] MEDS: BLOOD SUGAR DIAGNOSTIC 1 EACH STRIP VI SCH ×3 (06:32→18:13)
[2020-01-20] MEDS: INSULIN REGULAR, HUMAN 100 UNIT/ML 3 ML VIAL SQ PRN ×2 (06:34→18:11)
--- NOTE | 2020-01-20 06:45 | NUR ---
TELE/RN CLOSING NOTES PATIENT IN BED RESTING. PATIENT IS ALERT AND ORIENTED X 4. PATIENT IN NO SIGNS OF SOB OR RESPIRATORY DISTRESS NOTED.BREATHING IS EVEN AND UNLABORED. NO DISTRESS NOTED. PATIENT HAS RIGHT AC IV ACCESS #22G AND KRISTY AV FISTULA. PATIENT RECEIVED 1 UNIT PRBC. ALL NEEDS HAVE BEEN MET DURING SHIFT. SAFETY MEASURES ARE IN PLACE, BED IS LOCKED AND PLACED IN THE LOW POSITION, SIDE RAILS UP X 3, CALL LIGHT IS WITHIN REACH. WILL ENDORSE CARE TO DAY SHIFT NURSE.
[2020-01-20] MEDS: PANTOPRAZOLE 40 MG TABLET.DR PO SCH (09:00)
[2020-01-20] MEDS: SEVELAMER CARBONATE 800 MG TABLET PO SCH ×3 (10:29→18:05)
[2020-01-20] MEDS: CARVEDILOL 6.25 MG TABLET PO SCH (10:29)
[2020-01-20] MEDS: LISINOPRIL (20MG) 20 MG TABLET PO SCH (10:30)
[2020-01-20] MEDS: NIFEdipine XL (30MG) 30 MG TAB PO SCH (10:30)
--- NOTE | 2020-01-20 11:00 | NUR ---
RN NOTES PATIENTS IV LEAKING, STARTED NEW IV ON RIGHT FOREARM G22 WITH GOOD BLOOD RETURN.
--- NOTE | 2020-01-20 12:00 | NUR ---
RN NOTES PATIENT EVALUATED BY DR. SELENE LIZ, PATIENT READY TO BE DISCHARGED WITH OXYGEN.
--- NOTE | 2020-01-20 14:56 | NUR ---
RN NOTES PATIENT COMPLETED HD TOLERATED WELL WITH 3L OUT.
--- NOTE | 2020-01-20 16:10 | NUR ---
RN NOTES PATIENTS O2 SATURATION IS 87-89 ON ROOM AIR AT REST. PATIENT ON 3 L. OXYGEN CURRENTLY.
--- NOTE | 2020-01-20 18:41 | NUR ---
RN NOTES DISCHARGE EDUCATION PROVIDED TO LAURENT PATIENTS DAUGHTER. VERBALIZED UNDERSTANDING. PATIENT WAITING FOR OXYGEN TO BE DELIVERED FOR PATIENT TO BE DISCHARGED HOME.
--- NOTE | 2020-01-20 20:28 | NUR ---
Patient discharged via wheel chair with Oxygen. Caridac monitor removed, IV access removed, ID band removed. Patient on nasal canula at 2L/min. Patient breathing even and unlabored. No SOB or acute respiratory distress noted. Patient stable. Met patient daughter in ER waiting room. Put patient in car with Oxygen.
== END 2020-01-20 20:00 | disposition home or self-care (01) | DRG 720 ==
LOC: ER 20:16 → TELE2 22:59
PROVIDERS: ADMIT Nurse Practitioner Acute Care; ATTEND Nurse Practitioner Acute Care
PROC: 5A1D70Z Performance of Urinary Filtration, Intermittent, Less than 6 Hours Per Day (ICD-10-PCS; 2020-01-04)
PROC: XW13325 Transfusion of Convalescent Plasma (Nonautologous) into Peripheral Vein, Percutaneous Approach, New Technology Group 5 (ICD-10-PCS; principal; 2020-01-14)
PROC: 30233N1 Transfusion of Nonautologous Red Blood Cells into Peripheral Vein, Percutaneous Approach (ICD-10-PCS; 2020-01-19)
DX: A41.89 Other specified sepsis (principal); U07.1 COVID-19; E44.0 Moderate protein-calorie malnutrition; I12.0 Hypertensive chronic kidney disease with stage 5 chronic kidney disease or end stage renal disease; J12.89 Other viral pneumonia; N18.6 End stage renal disease; Z99.2 Dependence on renal dialysis; G93.41 Metabolic encephalopathy; D63.1 Anemia in chronic kidney disease; E78.5 Hyperlipidemia, unspecified; I16.1 Hypertensive emergency; I49.8 Other specified cardiac arrhythmias; I47.1 Supraventricular tachycardia; Z79.899 Other long term (current) drug therapy; Z87.891 Personal history of nicotine dependence; I70.0 Atherosclerosis of aorta; Y95 Nosocomial condition; D69.6 Thrombocytopenia, unspecified; E87.1 Hypo-osmolality and hyponatremia; E87.5 Hyperkalemia; J96.01 Acute respiratory failure with hypoxia; N25.0 Renal osteodystrophy; J15.9 Unspecified bacterial pneumonia; R73.9 Hyperglycemia, unspecified
CPT/HCPCS: 36415; 36600; 71045-TC; 80048-TC; 80053-TC; 80076-TC; 80202-TC; 82728-TC; 82803-TC; 82947-TC; 82962-TC; 83540-TC; 83605-TC; 83615-TC; 83735-TC; 84100-TC; 84484-TC; 85025-TC; 85378-TC; 85730-TC; 86140-TC; 86480; 86705; 86706; 86709; 86850-TC; 87040-TC; 87081-TC; 87899; 90935-TC; 93308-TC; 94799-TC; A4216; A4623; A6403; C9803; G0378; J1100; J1200; J1644; J1815; J1956; J2185; J2405; J2543; J2920; J3262; J3370; J3490; J7030; J7040; J7050; J7060; P9016-BL; P9017-BL; U0003